=== PATIENT | female | born 1945 | race Caucasian/White ===

== ENCOUNTER 2018-09-23 21:19 | Inpatient (IN) | payer MEDICARE ==
[2018-09-23] MEDS ORDERED: NITROGLYCERIN OINT 1 INCH/GM PACKET TOPICAL STA (21:37)
[2018-09-23] MEDS ORDERED: FUROSEMIDE 10 MG/ML 2 ML VIAL IV STA (21:38)
[2018-09-23] MEDS ORDERED: MORPHINE SULFATE 4 MG/ML SYRINGE IV STA (21:38)
--- NOTE | 2018-09-23 22:05 | ED ---
General Adult HPI - General Chief complaint: Shortness of Breath Stated complaint: Anemia Time Seen by Provider: 09/23/18 21:26 Source: patient Mode of arrival: EMS - History of Present Illness Initial comments: This patient is a 73-year-old woman who is transferred here from [facility] to have further evaluation and treatment. The patient recent history includes having had right hip fracture, reportedly having myocardial infarction, and also having DKA versus hyperosmolar syndrome, for which she was admitted to come in the hospital. The patient had been treated there and then discharged to the [facility] for further rehabilitation. It was reported that the patient was found to have anemia with a hemoglobin below 6 and she was transferred to [facility]. When the patient was seen there her hemoglobin was found to be 5.9 and she received transfusion of 2 units of red cells. The patient was then transferred here for further evaluation of her anemia. When I interview the patient, she is not complaining of feeling extremely hot and short of breath. She denies chest pain. No abdominal pain. No vomiting or diarrhea. She denies passing bloody or dark tarry stools. Additional history reveals that the patient has moved to the [facility] approximately 4-5 weeks ago. She previously was living in [facility] receiving primary care from a . -: unknown Improves with: none Worsens with: none Associated Symptoms: diaphoresis, shortness of breath Treatments Prior to Arrival: other (Blood transfusion, Lasix, albuterol) - Related Data Home Medications Medication Instructions Recorded Confirmed ALPRAZolam [Xanax] 2 mg PO HS 09/23/18 09/23/18 Albuterol Nebulized [Ventolin 2.5 mg INHALATION RT-Q4H 09/23/18 09/23/18 Nebulized] Aspirin [[place] Aspirin EC] 81 mg PO DAILY 09/23/18 09/23/18 Bisacodyl 10 mg RECTAL DAILY PRN 09/23/18 09/23/18 Clopidogrel Bisulfate [Plavix] 75 mg PO DAILY 09/23/18 09/23/18 Ferrous Sulfate [Iron (65 MG 325 mg PO DAILY 09/23/18 09/23/18 Elemental)] Furosemide [Lasix] 40 mg PO BID 09/23/18 09/23/18 HYDROcodone/APAP 10-325MG [[place] 1 tab PO Q6H 09/23/18 09/23/18 10-325] Insulin Glargine,Hum.rec.anlog 15 unit SQ HS 09/23/18 09/23/18 [Basaglar Kwikpen U-100] Insulin Lispro [humaLOG Kwikpen] See Protocol SQ AC-TID 09/23/18 09/23/18 Isosorbide Mononitrate ER [Imdur] 30 mg PO BID 09/23/18 09/23/18 Levothyroxine Sodium [Synthroid] 137 mcg PO DAILY 09/23/18 09/23/18 Lisinopril [Zestril] 10 mg PO DAILY 09/23/18 09/23/18 Lovastatin [Mevacor] 40 mg PO DAILY 09/23/18 09/23/18 Magnesium Hydroxide [Milk of 7,200 mg PO DAILY PRN 09/23/18 09/23/18 Magnesia Concentrate] Metoprolol Succinate [Toprol XL] 37.5 mg PO DAILY 09/23/18 09/23/18 Omeprazole [PriLOSEC] 20 mg PO BID 09/23/18 09/23/18 Phenytoin Sodium Extended 300 mg PO BID 09/23/18 09/23/18 [Dilantin] Ramipril [Altace] 5 mg PO DAILY 09/23/18 09/23/18 Sertraline [Zoloft] 150 mg PO DAILY 09/23/18 09/23/18 levETIRAcetam [Keppra] 1,000 mg PO BID 09/23/18 09/23/18 Allergies Allergy/AdvReac Type Severity Reaction Status Date / Time Penicillins Allergy Unknown Verified 09/23/18 21:41 pregabalin [From Lyrica] Allergy Unknown Verified 09/23/18 22:45 Review of Systems ROS Statement: Those systems with pertinent positive or pertinent negative responses have been documented in the HPI. ROS Other: All systems not noted in ROS Statement are negative. Constitutional: Denies: fever, chills Respiratory: Reports: dyspnea. Denies: cough, hemoptysis Cardiovascular: Reports: dyspnea on exertion, orthopnea, edema. Denies: chest pain, palpitations, syncope Gastrointestinal: Denies: abdominal pain, vomiting, diarrhea, melena, hematochezia Genitourinary: Denies: dysuria, hematuria Musculoskeletal: Denies: back pain Skin: Denies: rash Neurological: Denies: headache, weakness, numbness, paresthesias Past Medical History History of Any Multi-Drug Resistant Organisms: None Reported Past Psychological History: No Psychological Hx Reported Smoking Status: Former smoker Past Alcohol Use History: None Reported Past Drug Use History: None Reported - Past Family History Sister(s) Family Medical History: Diabetes Mellitus General Exam General appearance: alert, in distress Head exam: Present: atraumatic, normocephalic Eye exam: Present: normal appearance. Absent: scleral icterus, conjunctival injection ENT exam: Present: mucous membranes dry Neck exam: Present: normal inspection, full ROM Respiratory exam: Present: respiratory distress, rales, accessory muscle use. Absent: wheezes, rhonchi, stridor, decreased breath sounds, prolonged expiratory Cardiovascular Exam: Present: normal rhythm, tachycardia, normal heart sounds. Absent: systolic murmur, diastolic murmur, rubs, gallop GI/Abdominal exam: Present: soft. Absent: distended, tenderness, guarding, rebo und, rigid, mass Rectal exam: Present: normal inspection, normal rectal tone, other (HAL Begum present). Absent: fecal impaction, hemorrhoids, mass, tenderness Extremities exam: Present: normal inspection, normal capillary refill, pedal edema (There is pitting edema to just below the knees bilaterally). Absent: calf tenderness Back exam: Present: normal inspection. Absent: CVA tenderness (R), CVA tenderness (L) Neurological exam: Present: alert Skin exam: Present: warm, intact, diaphoretic, pallor, other (Patient does have stage II sacral decubitus ulcer, approximately 2-3 cm diameter.). Absent: rash Course Vital Signs 09/23/18 09/23/18 09/23/18 21:24 22:00 23:30 Temperature 98.1 F Pulse Rate 103 H 93 Respiratory 32 H 23 Rate Blood Pressure 166/65 130/52 O2 Sat by Pulse 96 98 100 Oximetry - Reevaluation(s) Reevaluation #1: 09/23/18 22:25 Patient is 73-year-old woman received as a transfer from [facility]. On arrival she does appear to be in moderate distress due to what appears to be congestive heart failure/pulmonary edema. The patient is started on BiPAP and given additional medications. Reassessment reveals that the patient is feeling better with the BiPAP and medication. The diaphoresis has resolved. The patient is less tachypnea And the tachycardia has resolved. Case discussed with Dr. Saavedra, who is covering for the [facility] and will admit. EKG Findings - EKG Comments: EKG Findings:: Old inferior infarct. Old anterolateral infarct. - EKG Results: EKG: interpreted by ERMD, sinus rhythm, normal axis EKG shows: tachycardia (Approximate 101) - Blocks, [place], Hypertrophy, ST Abn: AV and intraventricular conduction: right bundle branch block (fixed/intermittent, complete/incomplete) Medical Decision Making - Lab Data Result diagrams: 09/25/18 06:28 09/25/18 06:28 Lab Results 09/23/18 09/23/18 09/23/18 Range/Units 21:46 21:46 21:46 WBC 10.0 (3.8-10.6) k/uL RBC 3.29 L (3.80-5.40) m/uL Hgb 10.1 L (11.4-16.0) gm/dL Hct 33.4 L (34.0-46.0) % MCV 101.6 H (80.0-100.0) fL MCH 30.6 (25.0-35.0) pg MCHC 30.1 L (31.0-37.0) g/dL RDW 17.9 H (11.5-15.5) % Plt Count 567 H (150-450) k/uL Neutrophils % 87 % Lymphocytes % 4 % Monocytes % 7 % Eosinophils % 0 % Basophils % 0 % Neutrophils # 8.7 H (1.3-7.7) k/uL Lymphocytes # 0.4 L (1.0-4.8) k/uL Monocytes # 0.7 (0-1.0) k/uL Eosinophils # 0.0 (0-0.7) k/uL Basophils # 0.0 (0-0.2) k/uL Hypochromasia Marked Poikilocytosis Moderate Anisocytosis Slight Macrocytosis Moderate PT 10.9 (9.0-12.0) sec INR 1.0 (<1.2) APTT 19.9 L (22.0-30.0) sec Sodium (137-145) mmol/L Potassium (3.5-5.1) mmol/L Chloride (98-107) mmol/L Carbon Dioxide (22-30) mmol/L Anion Gap mmol/L BUN (7-17) mg/dL Creatinine (0.52-1.04) mg/dL Est GFR (CKD-EPI)AfAm (>60 ml/min/1.73 sqM) Est GFR (CKD-EPI)NonAf (>60 ml/min/1.73 sqM) Glucose (74-99) mg/dL Plasma Lactic Acid Angelo 1.7 (0.7-2.0) mmol/L Calcium (8.4-10.2) mg/dL Total Bilirubin (0.2-1.3) mg/dL AST (14-36) U/L ALT (9-52) U/L Alkaline Phosphatase (38-126) U/L Troponin I (0.000-0.034) ng/mL Total Protein (6.3-8.2) g/dL Albumin (3.5-5.0) g/dL Blood Type Blood Type Recheck Antibody Screen Spec Expiration Date 09/23/18 09/23/18 09/23/18 Range/Units 21:46 21:46 21:50 WBC (3.8-10.6) k/uL RBC (3.80-5.40) m/uL Hgb (11.4-16.0) gm/dL Hct (34.0-46.0) % MCV (80.0-100.0) fL MCH (25.0-35.0) pg MCHC (31.0-37.0) g/dL RDW (11.5-15.5) % Plt Count (150-450) k/uL Neutrophils % % Lymphocytes % % Monocytes % % Eosinophils % % Basophils % % Neutrophils # (1.3-7.7) k/uL Lymphocytes # (1.0-4.8) k/uL Monocytes # (0-1.0) k/uL Eosinophils # (0-0.7) k/uL Basophils # (0-0.2) k/uL Hypochromasia Poikilocytosis Anisocytosis Macrocytosis PT (9.0-12.0) sec INR (<1.2) APTT (22.0-30.0) sec Sodium 136 L (137-145) mmol/L Potassium 4.4 (3.5-5.1) mmol/L Chloride 101 (98-107) mmol/L Carbon Dioxide 22 (22-30) mmol/L Anion Gap 13 mmol/L BUN 38 H (7-17) mg/dL Creatinine 0.95 (0.52-1.04) mg/dL Est GFR (CKD-EPI)AfAm 70 (>60 ml/min/1.73 sqM) Est GFR (CKD-EPI)NonAf 61 (>60 ml/min/1.73 sqM) Glucose 331 H (74-99) mg/dL Plasma Lactic Acid Angelo (0.7-2.0) mmol/L Calcium 8.9 (8.4-10.2) mg/dL Total Bilirubin 0.8 (0.2-1.3) mg/dL AST 47 H (14-36) U/L ALT 39 (9-52) U/L Alkaline Phosphatase 392 H (38-126) U/L Troponin I 0.186 H* (0.000-0.034) ng/mL Total Protein 6.1 L (6.3-8.2) g/dL Albumin 3.3 L (3.5-5.0) g/dL Blood Type AB Negative Blood Type Recheck CABO Indicated Antibody Screen NEGATIVE Spec Expiration Date 09/26/2018 - 7559 Critical Care Time Critical Care Time: Yes (35 minutes) Disposition Clinical Impression: Congestive heart failure, Anemia, Decubitus skin ulcer, Elevated troponin I level Disposition: ADMITTED IP TO THIS [facility] Condition: Poor
[2018-09-23 22:25] LABS: Albumin 3.3 g/dL (3.5-5.0); Calcium 8.9 mg/dL (8.4-10.2); Potassium 4.4 mmol/L (3.5-5.1); Total Bilirubin 0.8 mg/dL (0.2-1.3); Total Protein 6.1 g/dL (6.3-8.2)
[2018-09-23] MEDS ORDERED: ACETAMINOPHEN TAB 325 MG TAB PO PRN (22:26)
[2018-09-23] MEDS ORDERED: NALOXONE 0.4 MG/ML 1 ML VIAL IV PRN (22:26)
[2018-09-23] MEDS ORDERED: ONDANSETRON 4 MG/2 ML VIAL IVP PRN (22:26)
[2018-09-23 22:34] LABS: Prothrombin Time 10.9 sec (9.0-12.0)
[2018-09-23 22:35] LABS: Partial Thromboplastin Time 19.9 sec (22.0-30.0)
[2018-09-23 22:37] LABS: Anisocytosis Slight; Basophils % (A) 0 %; Eosinophils % (A) 0 %; HCT 33.4 % (34.0-46.0); HGB 10.1 gm/dL (11.4-16.0); Hypochromasia Marked; Lymphocytes # (A) 0.4 k/uL (1.0-4.8); Lymphocytes % (A) 4 %; MCH 30.6 pg (25.0-35.0); MCHC 30.1 g/dL (31.0-37.0); MCV 101.6 fL (80.0-100.0); Macrocytosis Moderate; Mean Platelet Volume 7.2; Monocytes # (A) 0.7 k/uL (0-1.0); Monocytes % (A) 7 %; Neutrophils # (A) 8.7 k/uL (1.3-7.7); Neutrophils % (A) 87 %; Platelet Count 567 k/uL (150-450); Poikilocytosis Moderate; RBC 3.29 m/uL (3.80-5.40); RDW 17.9 % (11.5-15.5)
[2018-09-23] MEDS ORDERED: INSULIN REGULAR 100 UNIT/ML VIAL SQ STA (23:26)
[2018-09-24 00:45] LABS: Glucose,Whole Blood 340 mg/dL (75-99)
[2018-09-24] MEDS: SODIUM CHLORIDE 0.9% 1,000 ML IV SCH ×2 (01:28→23:17)
--- NOTE | 2018-09-24 01:31 | P.HPIM ---
History of Present Illness H&P Date: 09/24/18 The patient is a 73 yo F with a PMH of CAD, systolic CHF, COPD, HTN, DM, and seizure disorder was transferred to the ED from [facility] . The patient had a L hip repair in July 2018 and was discharged to [facility] where routine blood work revealed a Hgb of 5.9 earlier today for which she was sent to [facility]. The patient received 2 units of pRBCs and was subsequently transferred to our ED for further management. Upon my interview, the patient reported that she has been experiencing gradually worsening shortness of breath over the past few weeks along with LE edema. She also noted that she had previously undergone a workup for her anemia with endoscopy and co lonoscopy, and was told that they weren't able to find a particular cause. She denied noticing bright red blood per rectum or melena. She notes compliance with her lasix and other medications. She otherwise denied chest pain, nausea, vomiting, abdominal pain, or diarrhea. Further denied headaches, visual disturbances, or LE pain. She reported that she had recently moved to the area and prior to her hip repair was living in [facility]. She underwent an extensive evaluation in the Ed w/ Troponin leve 0.186, BNP 10,200, BUN 38, Hgb 10.1, WBC 10.0, lactic acid 1.7, and FOBT positive. She was noted to be in fluid overload and was given IV lasix and admitted to the medicine service for further management. Review of Systems Pertinent positives and negatives as discussed in HPI, a complete review of systems was performed and all other systems are negative. Past Medical History History of Any Multi-Drug Resistant Organisms: None Reported Past Psychological History: No Psychological Hx Reported Smoking Status: Former smoker Past Alcohol Use History: None Reported Past Drug Use History: None Reported - Past Family History Sister(s) Family Medical History: Diabetes Mellitus Medications and Allergies Home Medications Medication Instructions Recorded Confirmed Type ALPRAZolam [Xanax] 2 mg PO HS 09/23/18 09/23/18 History Albuterol Nebulized [Ventolin 2.5 mg INHALATION RT-Q4H 09/23/18 09/23/18 History Nebulized] Aspirin [[place] Aspirin EC] 81 mg PO DAILY 09/23/18 09/23/18 History Bisacodyl 10 mg RECTAL DAILY PRN 09/23/18 09/23/18 History Clopidogrel Bisulfate [Plavix] 75 mg PO DAILY 09/23/18 09/23/18 History Ferrous Sulfate [Iron (65 MG 325 mg PO DAILY 09/23/18 09/23/18 History Elemental)] Furosemide [Lasix] 40 mg PO BID 09/23/18 09/23/18 History HYDROcodone/APAP 10-325MG [[place] 1 tab PO Q6H 09/23/18 09/23/18 History 10-325] Insulin Glargine,Hum.rec.anlog 15 unit SQ HS 09/23/18 09/23/18 History [Basaglar Kwikpen U-100] Insulin Lispro [humaLOG Kwikpen] See Protocol SQ AC-TID 09/23/18 09/23/18 History Isosorbide Mononitrate ER [Imdur] 30 mg PO BID 09/23/18 09/23/18 History Levothyroxine Sodium [Synthroid] 137 mcg PO DAILY 09/23/18 09/23/18 History Lisinopril [Zestril] 10 mg PO DAILY 09/23/18 09/23/18 History Lovastatin [Mevacor] 40 mg PO DAILY 09/23/18 09/23/18 History Magnesium Hydroxide [Milk of 7,200 mg PO DAILY PRN 09/23/18 09/23/18 History Magnesia Concentrate] Metoprolol Succinate [Toprol XL] 37.5 mg PO DAILY 09/23/18 09/23/18 History Omeprazole [PriLOSEC] 20 mg PO BID 09/23/18 09/23/18 History Phenytoin Sodium Extended 300 mg PO BID 09/23/18 09/23/18 History [Dilantin] Ramipril [Altace] 5 mg PO DAILY 09/23/18 09/23/18 History Sertraline [Zoloft] 150 mg PO DAILY 09/23/18 09/23/18 History levETIRAcetam [Keppra] 1,000 mg PO BID 09/23/18 09/23/18 History Allergies Allergy/AdvReac Type Severity Reaction Status Date / Time Penicillins Allergy Unknown Verified 09/23/18 21:41 pregabalin [From Lyrica] Allergy Unknown Verified 09/23/18 22:45 Physical Exam Vitals: Vital Signs Temp Pulse Resp BP Pulse Ox 09/23/18 23:30 93 23 130/52 100 09/23/18 22:00 98 09/23/18 21:24 98.1 F 103 H 32 H 166/65 96 Intake and Output 09/23/18 09/23/18 09/24/18 14:59 22:59 06:59 Output Total 500 Balance -500 Output: Urine 500 Other: Weight 58.06 kg Results CBC & Chem 7: 09/23/18 21:46 09/23/18 21:50 Labs: Abnormal Lab Results - Last 24 Hours (Table) 09/23/18 09/23/18 09/23/18 Range/Units 21:46 21:46 21:46 RBC 3.29 L (3.80-5.40) m/uL Hgb 10.1 L (11.4-16.0) gm/dL Hct 33.4 L (34.0-46.0) % MCV 101.6 H (80.0-100.0) fL MCHC 30.1 L (31.0-37.0) g/dL RDW 17.9 H (11.5-15.5) % Plt Count 567 H (150-450) k/uL Neutrophils # 8.7 H (1.3-7.7) k/uL Lymphocytes # 0.4 L (1.0-4.8) k/uL APTT 19.9 L (22.0-30.0) sec Sodium (137-145) mmol/L BUN (7-17) mg/dL Glucose (74-99) mg/dL POC Glucose (mg/dL) (75-99) mg/dL AST (14-36) U/L Alkaline Phosphatase (38-126) U/L Troponin I 0.186 H* (0.000-0.034) ng/mL Total Protein (6.3-8.2) g/dL Albumin (3.5-5.0) g/dL Stool Occult Blood (Negative) 09/23/18 09/23/18 09/24/18 Range/Units 21:50 22:58 00:43 RBC (3.80-5.40) m/uL Hgb (11.4-16.0) gm/dL Hct (34.0-46.0) % MCV (80.0-100.0) fL MCHC (31.0-37.0) g/dL RDW (11.5-15.5) % Plt Count (150-450) k/uL Neutrophils # (1.3-7.7) k/uL Lymphocytes # (1.0-4.8) k/uL APTT (22.0-30.0) sec Sodium 136 L (137-145) mmol/L BUN 38 H (7-17) mg/dL Glucose 331 H (74-99) mg/dL POC Glucose (mg/dL) 340 H (75-99) mg/dL AST 47 H (14-36) U/L Alkaline Phosphatase 392 H (38-126) U/L Troponin I (0.000-0.034) ng/mL Total Protein 6.1 L (6.3-8.2) g/dL Albumin 3.3 L (3.5-5.0) g/dL Stool Occult Blood Positive H (Negative) Assessment and Plan Plan: Acute CHF exacerbation -C/w lasix 40 mg q8h -Echocardiogram -Cardiac monitoring -Cardiology consult -Monitor BMP with electrolytes and replace as needed -Bipap prn Elevated troponin, likely in setting of CHF exacerbation -Trend troponin -Cardiac monitoring Macrocytic anemia, s/p 2 U pRBCs -Monitor CBC -FOBT positive -Obtain records from PMD: Dr Ramiro Ruvalcaba for prior workup in am -Liquid diet Diabetes mellitus w/ hyperglycemia -CARLOS with FS -Levemir 10 U qhs (takes Lantus 15 U qhs at home) Chronic conditions: COPD, Seizure disorder, HTN, Hypothyroidism -Resume home meds DVT prophylaxis -IPCDs The patient is admitted with an anticipated greater than 2 midnight stay for evaluation of Acute CHF exacerbation. CODE STATUS:Full Code Discussed with: Patient Anticipated discharge date: 09/27/[address]: Home A total of 45 minutes was spent on the care of this complex patient more than 50% of the time was spent in counseling and care coordination.
[2018-09-24] MEDS: ALBUTEROL NEBULIZED 2.5 MG/3 ML INHALATION SCH ×5 (03:01→21:22)
[2018-09-24 04:00] LABS: Anisocytosis Slight; HCT 28.5 % (34.0-46.0); Hypochromasia Marked; MCH 29.8 pg (25.0-35.0); MCHC 29.8 g/dL (31.0-37.0); Macrocytosis Moderate; Mean Platelet Volume 8.9; Platelet Count 398 k/uL (150-450); Poikilocytosis Marked; RBC 2.85 m/uL (3.80-5.40); RDW 17.8 % (11.5-15.5)
[2018-09-24 04:05] LABS: HGB 8.5 gm/dL (11.4-16.0)
[2018-09-24] MEDS ORDERED: FUROSEMIDE 10 MG/ML 4 ML VIAL IV STA (04:10)
[2018-09-24 04:14] LABS: Calcium 8.3 mg/dL (8.4-10.2); Potassium 4.1 mmol/L (3.5-5.1)
[2018-09-24 06:09] LABS: Glucose,Whole Blood 274 mg/dL (75-99)
[2018-09-24] MEDS: LEVOTHYROXINE 137 MCG TAB PO SCH (06:23)
[2018-09-24] MEDS: INSULIN ASPART (NovoLOG) 100 UNIT/ML VIAL SQ SCH ×4 (06:23→22:16)
[2018-09-24] MEDS ORDERED: ATORVASTATIN 10 MG TAB PO SCH (09:00)
[2018-09-24] MEDS: FUROSEMIDE 10 MG/ML 4 ML VIAL IV SCH ×3 (09:11→23:14)
[2018-09-24] MEDS: hydrALAZINE HCL 25 MG TAB PO SCH ×2 (09:12→19:56)
[2018-09-24] MEDS: ISOSORBIDE MONONITRATE ER 30 MG TAB.ER.24H PO SCH ×2 (09:12→19:56)
[2018-09-24] MEDS: ATORVASTATIN 40 MG TAB PO SCH (09:12)
[2018-09-24] MEDS: FAMOTIDINE 20 MG TAB PO SCH ×2 (09:12→19:56)
[2018-09-24] MEDS: SERTRALINE 100 MG TAB PO SCH (09:12)
[2018-09-24] MEDS: levETIRAcetam 500 MG TAB PO SCH ×2 (09:12→19:57)
[2018-09-24] MEDS: PHENYTOIN SODIUM EXTENDED 100 MG CAP PO SCH ×2 (09:13→19:56)
[2018-09-24] MEDS: METOPROLOL SUCCINATE (ER) 25 MG TAB.ER.24H PO SCH (09:13)
[2018-09-24] MEDS: LISINOPRIL 10 MG TAB PO SCH (09:14)
--- NOTE | 2018-09-24 09:43 | CONS ---
CONSULTATION Mrs. Cruz is a 73-year-old female who was transferred to [facility] from [facility] with symptoms of progressive dyspnea, anemia, and mild elevation of the troponin. The patient recently underwent left hip surgery after fracture. She was in [facility] when she was noted to have severe anemia and was transferred to [facility], received blood and subsequently transferred to [facility]. The patient says that she had a myocardial infarction at the time of her hip fracture, although details of that are not available to me. She claims that she had 3 prior myocardial infarctions. 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 She never had an angioplasty or stenting. She has chronic dyspnea on exertion but no chest pain. She has peripheral edema worse now. No PND. She has orthopnea. She has had anemia before and underwent workup but the details of that are not available. She denies any gross bleeding or change in the color of the stool yet she is heme positive. Her coronary risk factors are positive for prior history of smoking which she stopped recently. She has hypertension, hyperlipidemia. She is nondiabetic. MEDICATIONS: Include Keppra, Zoloft, Altace 5 mg daily, omeprazole 20 mg twice a day, metoprolol succinate 37.5 mg daily, lovastatin 40 mg daily, Zestril 10 mg daily, isosorbide mononitrate 30 mg twice a day, insulin, Lasix 40 mg twice a day, iron, Plavix 75 mg daily, aspirin 81 mg daily, albuterol. REVIEW OF SYSTEMS: RESPIRATORY system: She has history of chronic obstructive lung disease with dyspnea on exertion, occasional cough. GI system: She is not aware of active GI bleeding, but she has underwent endoscopy and was told that she has a small ulceration. system: No dysuria or hematuria. Nervous system: She has a history of seizure in the past. PHYSICAL EXAMINATION: 73-year-old female, appears older than stated age, small body habitus. Blood pressure running in the 160s and 170s with a heart rate in the 60s. HEAD: Normocephalic. EYES: Sclerae anicteric. NECK: No bruit. LUNGS with decreased air exchange bilaterally. No wheezes. HEART: Regular rate and rhythm S1, S2. No S3 with systolic murmur. No diastolic murmur. No rub. ABDOMEN: Soft, nontender. Positive bowel sounds. No megaly. EXTREMITIES: +1 to 2 edema bilaterally. LAB DATA: Lab data revealed a hemoglobin of 8.5. Yesterday it was 10.1, white blood cell of 11. BUN and creatinine 41 and 0.95. Potassium 4.1. Troponin of 0.186 and 0.211. NT proBNP of 10,200. She is heme positive. EKG revealed a sinus mechanism, rate of 101 with right bundle branch block, left axis deviation, cannot exclude an inferolateral myocardial infarction. IMPRESSION: 1. Anemia, severe. The patient's hemoglobin was down to 5.9, received 2 units of blood. 2. Mild elevation of troponin, most likely a type 2 event. I do not believe that we are dealing with a primary ischemic event. 3. Peripheral edema with finding of congestive heart failure, the left ventricular systolic function evaluation is unclear. 4. Prior history of coronary artery disease. 5. History of diabetes. 6. History of chronic obstructive lung disease. 7. History of hypertension. 8. Hyperlipidemia. RECOMMENDATION: From the cardiac standpoint, I will continue on the IV diuretics. Her antiplatelets have been on hold. I will add to her regimen hydralazine to optimize her blood pressure control. We will follow her renal function. Review the results for the echo. We will try to obtain the prior workup that was done in [place] regarding her cardiac status. Depending on her progress, further recommendations will be made. Thank you for this consult. We will follow with you. MMODL / IJN: [id number] /
--- NOTE | 2018-09-24 10:09 | XR ---
EXAMINATION TYPE: XR chest 1V portable DATE OF EXAM: 09/24/2018 COMPARISON: 09/23/2018 HISTORY: Shortness of breath TECHNIQUE: Single frontal view of the chest is obtained. FINDINGS: Bilateral consolidation, pleural effusion diffuse interstitial pattern. Heart size promine nt. No pneumothorax. Suspect underlying COPD. Diffuse osteopenia. IMPRESSION: Pattern favors CHF stable in appearance. Underlying pneumonia not excluded.
[2018-09-24 10:37] LABS: Anisocytosis Slight; Basophils % (A) 0 %; Eosinophils % (A) 0 %; HCT 29.1 % (34.0-46.0); HGB 8.8 gm/dL (11.4-16.0); Hypochromasia Marked; Lymphocytes # (A) 0.3 k/uL (1.0-4.8); Lymphocytes % (A) 3 %; MCHC 30.2 g/dL (31.0-37.0); MCV 99.4 fL (80.0-100.0); Macrocytosis Moderate; Mean Platelet Volume 8.2; Monocytes % (A) 9 %; Neutrophils # (A) 9.2 k/uL (1.3-7.7); Neutrophils % (A) 86 %; Platelet Count 429 k/uL (150-450); Poikilocytosis Marked; RBC 2.93 m/uL (3.80-5.40); RDW 17.9 % (11.5-15.5); WBC 10.7 k/uL (3.8-10.6)
[2018-09-24] MEDS: HYDROcodone/APAP 10-325MG 1 EACH TAB PO SCH ×3 (11:07→23:14)
--- NOTE | 2018-09-24 11:14 | P.PN ---
Progress Note - Text Progress Note Date: 09/24/18 S:- Pt. 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 Pt. reports that her breathing is slightly better and nurse reported that she is no longer requiring BiPAP for her breathing. Pt. reports right hip pain from her recent fracture and repair, she stated that she was on [place] but it wasn't resumed here (most likely due to her respiratory status requiring BiPAP for stability). When asked her about GI bleeding, she reported that she was worked up in the past and was told that her small intestine has AV- dilation that may bleed but no treatment was done. Pt. denied bright red blood per rectum or tarry black stools. She was taken to other acility with Hb-5.9 and received 2 units PRBC with her Hb at admission to this facility 10.1 and this morning 8.5. Pt. denied CP, Palpitations, Diaphoresis, Dizziness, N/V, F/C and denies rest of the ROS. She reports improvement in her breathing status. O:- Vitals - 151/65, 74, 18, Afebrile, 100% on RA. Gen - A, O X 3, NAD. Resp - Bibasal crackles, with luis ecentral coarse crackles, no wheezes heard. Heart - RRR, S1S2+. Abd - Soft, BS +, non-tender abdomen. Ext - PP+, 2+ bilateral lower extremity pitting edema. A/P:- 1- Acute Exacerbation of CHF - Cardiology on case, will continue current management, strict Is and Os and daily weights, CXR portable to assess improvement in pulmonary edema. 2- NSTEMI type-II - Cardio on case, will await their recs. 3- GI bleed with anemia - Hb at admission of 10.1 may be falsely elevated as she had Hb-5.9 and received 2 untis PRBC and today Hb 8.5 is appropriate rise, will check CBC in am again. 4- Chronic medical conditions - Continue home medications, will resume painmedications too as pt. is improving respiratory ramos and is 100% on RA.
[2018-09-24 12:05] LABS: Glucose,Whole Blood 327 mg/dL (75-99)
[2018-09-24 16:49] LABS: Glucose,Whole Blood 291 mg/dL (75-99)
[2018-09-24 17:44] LABS: Anisocytosis Slight; HCT 26.7 % (34.0-46.0); Hypochromasia Marked; MCH 30.1 pg (25.0-35.0); MCV 100.5 fL (80.0-100.0); Macrocytosis Moderate; Mean Platelet Volume 8.6; Poikilocytosis Moderate; RBC 2.65 m/uL (3.80-5.40); RDW 17.8 % (11.5-15.5); WBC 11.8 k/uL (3.8-10.6)
[2018-09-24 18:03] LABS: Platelet Count 410 k/uL (150-450)
[2018-09-24] MEDS: ALPRAZolam 1 MG TAB PO SCH (19:57)
[2018-09-24 21:10] LABS: Glucose,Whole Blood 352 mg/dL (75-99)
[2018-09-24] MEDS: INSULIN DETEMIR (LEVEMIR) 100 UNIT/ML SYR SQ SCH (22:16)
--- NOTE | 2018-09-24 22:18 | P.CONS ---
History of Present Illness - Reason for Consult Consult date: 09/24/18 Anemia Requesting physician: Jaylin Saavedra - Chief Complaint Shortness of breath, anemia - History of Present Illness 73-year-old female with a past medical history significant for coronary artery disease, systolic congestive heart failure, COPD, diabetes mellitus, hypertens ion, anemia and seizure disorder who was transferred from [facility] where she was initially evaluated for complaints of shortness of breath. The patient had been having worsening shortness of breath and lower extremity swelling for a few weeks prior to presentation to the emergency department. The patient was also found to be anemic with a hemoglobin of 5.9 and is status post 2 units of packed red blood cells. On questioning the patient reports known history of anemia which she has been evaluated for by hematology and gastroenterology in the past. She reports endoscopic evaluation with EGD and colonoscopy in February or March which she states were significant for bleeding vessels. She denies any intervention at the time of endoscopy. Currently she is also denying any signs or symptoms of GI bleeding, with no coffee-ground emesis, hematemesis, hematochezia or melena. She denies any abdominal pain or change in bowel habits. No NSAID use reported. Review of Systems REVIEW OF SYSTEMS: CONSTITUTIONAL: Denies any fevers, chills, but does report fatigue. CARDIOVASCULAR: Denies any chest pain, palpitations high or low blood pressures RESPIRATORY: Shortness of breath, denies hemoptysis. GENITOURINARY: No dysuria or hematuria. MUSCULOSKELETAL: No weakness reported. SKIN: Denies any new rashes or lesions, jaundice or pallor. PSYCHIATRIC: Denies any depression or anxiety. NEUROLOGY: Denies headache, denies any new focal deficits. EARS/NOSE/THROAT: No recent hearing change, congestion, nasal discharge or sore throat. EYES: No pain in eyes, discharge or change in vision. GASTROINTESTINAL: As per HPI. Past Medical History Past Medical History: Diabetes Mellitus, Hypertension, Myocardial Infarction (MA), Seizure Disorder, Thyroid Disorder Additional Past Medical History / Comment(s): anemia,anxiety,depression Last Myocardial Infarction Date:: 07/2018 History of Any Multi-Drug Resistant Organisms: None Reported Additional Past Surgical History / Comment(s): right hip fx (08-09) Past Anesthesia/Blood Transfusion Reactions: No Reported Reaction Past Psychological History: No Psychological Hx Reported Smoking Status: Former smoker Past Alcohol Use History: None Reported Past Drug Use History: None Reported - Past Family History Sister(s) Family Medical History: Diabetes Mellitus Medications and Allergies Home Medications Medication Instructions Recorded Confirmed Type ALPRAZolam [Xanax] 2 mg PO HS 09/23/18 09/23/18 History Albuterol Nebulized [Ventolin 2.5 mg INHALATION RT-Q4H 09/23/18 09/23/18 History Nebulized] Aspirin [[place] Aspirin EC] 81 mg PO DAILY 09/23/18 09/23/18 History Bisacodyl 10 mg RECTAL DAILY PRN 09/23/18 09/23/18 History Clopidogrel Bisulfate [Plavix] 75 mg PO DAILY 09/23/18 09/23/18 History Ferrous Sulfate [Iron (65 MG 325 mg PO DAILY 09/23/18 09/23/18 History Elemental)] Furosemide [Lasix] 40 mg PO BID 09/23/18 09/23/18 History HYDROcodone/APAP 10-325MG [[place] 1 tab PO Q6H 09/23/18 09/23/18 History 10-325] Insulin Glargine,Hum.rec.anlog 15 unit SQ HS 09/23/18 09/23/18 History [Basaglar Kwikpen U-100] Insulin Lispro [humaLOG Kwikpen] See Protocol SQ AC-TID 09/23/18 09/23/18 History Isosorbide Mononitrate ER [Imdur] 30 mg PO BID 09/23/18 09/23/18 History Levothyroxine Sodium [Synthroid] 137 mcg PO DAILY 09/23/18 09/23/18 History Lisinopril [Zestril] 10 mg PO DAILY 09/23/18 09/23/18 History Lovastatin [Mevacor] 40 mg PO DAILY 09/23/18 09/23/18 History Magnesium Hydroxide [Milk of 7,200 mg PO DAILY PRN 09/23/18 09/23/18 History Magnesia Concentrate] Metoprolol Succinate [Toprol XL] 37.5 mg PO DAILY 09/23/18 09/23/18 History Omeprazole [PriLOSEC] 20 mg PO BID 09/23/18 09/23/18 History Phenytoin Sodium Extended 300 mg PO BID 09/23/18 09/23/18 History [Dilantin] Ramipril [Altace] 5 mg PO DAILY 09/23/18 09/23/18 History Sertraline [Zoloft] 150 mg PO DAILY 09/23/18 09/23/18 History levETIRAcetam [Keppra] 1,000 mg PO BID 09/23/18 09/23/18 History Allergies Allergy/AdvReac Type Severity Reaction Status Date / Time Penicillins Allergy Unknown Verified 09/23/18 21:41 pregabalin [From Lyrica] Allergy Unknown Verified 09/23/18 22:45 Physical Exam Vitals: Vital Signs Temp Pulse Pulse Resp BP BP Pulse Ox 09/24/18 21:20 68 09/24/18 20:00 98.1 F 88 24 131/58 95 09/24/18 16:37 67 09/24/18 16:30 100 09/24/18 16:27 68 09/24/18 15:23 98.6 F 74 20 115/53 96 09/24/18 11:24 69 09/24/18 11:14 68 09/24/18 11:08 98.1 F 89 18 117/57 98 09/24/18 08:22 71 09/24/18 08:09 67 100 09/24/18 08:00 98.1 F 74 18 151/65 100 09/24/18 04:00 98.2 F 96 28 H 170/80 98 09/24/18 01:17 95 26 H 09/24/18 01:11 97.4 F L 95 26 H 160/100 98 09/23/18 23:30 93 23 130/52 100 09/23/18 22:00 98 09/23/18 21:24 98.1 F 103 H 32 H 166/65 96 Intake and Output 09/24/18 09/24/18 09/24/18 06:59 14:59 22:59 Intake Total 200 90 20 Output Total 1300 350 Balance -1100 -260 20 Intake: IV 20 Invasive Line 1 10 Invasive Line 2 10 Oral 200 90 Output: Urine 1300 350 Other: Voiding Method Indwelling Catheter Indwelling Catheter Indwelling Catheter # Voids 0 Weight 65.5 kg 65.5 kg On physical examination, patient appears comfortable in no apparent distress. HEAD: Normocephalic, atraumatic. EYES: No scleral icterus. No conjunctival injection. MOUTH: No lesions, tongue midline. NECK: Trachea midline, no gross abnormalities. CHEST: Decreased air entry in all lung scanlon. HEART: Regular rate and rhythm. ABDOMEN: Soft, nontender. Bowel sounds are positive. No organomegaly. No guarding or rigidity. EXTREMITIES: Bilateral pedal edema. SKIN: No rashes, no jaundice. NEUROLOGIC: Alert and oriented x3. No focal deficits. Results CBC & Chem 7: 09/24/18 17:33 09/24/18 03:45 Labs: Abnormal Lab Results - Last 24 Hours (Table) 09/23/18 09/23/18 09/23/18 Range/Units 21:46 21:46 21:46 WBC (3.8-10.6) k/uL RBC 3.29 L (3.80-5.40) m/uL Hgb 10.1 L (11.4-16.0) gm/dL Hct 33.4 L (34.0-46.0) % MCV 101.6 H (80.0-100.0) fL MCHC 30.1 L (31.0-37.0) g/dL RDW 17.9 H (11.5-15.5) % Plt Count 567 H (150-450) k/uL Neutrophils # 8.7 H (1.3-7.7) k/uL Lymphocytes # 0.4 L (1.0-4.8) k/uL APTT 19.9 L (22.0-30.0) sec Sodium (137-145) mmol/L BUN (7-17) mg/dL Glucose (74-99) mg/dL POC Glucose (mg/dL) (75-99) mg/dL Calcium (8.4-10.2) mg/dL AST (14-36) U/L Alkaline Phosphatase (38-126) U/L Troponin I 0.186 H* (0.000-0.034) ng/mL Total Protein (6.3-8.2) g/dL Albumin (3.5-5.0) g/dL Stool Occult Blood (Negative) 09/23/18 09/23/18 09/24/18 Range/Units 21:50 22:58 00:43 WBC (3.8-10.6) k/uL RBC (3.80-5.40) m/uL Hgb (11.4-16.0) gm/dL Hct (34.0-46.0) % MCV (80.0-100.0) fL MCHC (31.0-37.0) g/dL RDW (11.5-15.5) % Plt Count (150-450) k/uL Neutrophils # (1.3-7.7) k/uL Lymphocytes # (1.0-4.8) k/uL APTT (22.0-30.0) sec Sodium 136 L (137-145) mmol/L BUN 38 H (7-17) mg/dL Glucose 331 H (74-99) mg/dL POC Glucose (mg/dL) 340 H (75-99) mg/dL Calcium (8.4-10.2) mg/dL AST 47 H (14-36) U/L Alkaline Phosphatase 392 H (38-126) U/L Troponin I (0.000-0.034) ng/mL Total Protein 6.1 L (6.3-8.2) g/dL Albumin 3.3 L (3.5-5.0) g/dL Stool Occult Blood Positive H (Negative) 09/24/18 09/24/18 09/24/18 Range/Units 03:45 03:45 03:45 WBC 11.0 H (3.8-10.6) k/uL RBC 2.85 L (3.80-5.40) m/uL Hgb 8.5 L D (11.4-16.0) gm/dL Hct 28.5 L (34.0-46.0) % MCV (80.0-100.0) fL MCHC 29.8 L (31.0-37.0) g/dL RDW 17.8 H (11.5-15.5) % Plt Count (150-450) k/uL Neutrophils # (1.3-7.7) k/uL Lymphocytes # (1.0-4.8) k/uL APTT (22.0-30.0) sec Sodium (137-145) mmol/L BUN 41 H (7-17) mg/dL Glucose 233 H (74-99) mg/dL POC Glucose (mg/dL) (75-99) mg/dL Calcium 8.3 L (8.4-10.2) mg/dL AST (14-36) U/L Alkaline Phosphatase (38-126) U/L Troponin I 0.211 H* (0.000-0.034) ng/mL Total Protein (6.3-8.2) g/dL Albumin (3.5-5.0) g/dL Stool Occult Blood (Negative) 09/24/18 09/24/18 09/24/18 Range/Units 06:07 09:58 09:58 WBC 10.7 H (3.8-10.6) k/uL RBC 2.93 L (3.80-5.40) m/uL Hgb 8.8 L (11.4-16.0) gm/dL Hct 29.1 L (34.0-46.0) % MCV (80.0-100.0) fL MCHC 30.2 L (31.0-37.0) g/dL RDW 17.9 H (11.5-15.5) % Plt Count (150-450) k/uL Neutrophils # 9.2 H (1.3-7.7) k/uL Lymphocytes # 0.3 L (1.0-4.8) k/uL APTT (22.0-30.0) sec Sodium (137-145) mmol/L BUN (7-17) mg/dL Glucose (74-99) mg/dL POC Glucose (mg/dL) 274 H (75-99) mg/dL Calcium (8.4-10.2) mg/dL AST (14-36) U/L Alkaline Phosphatase (38-126) U/L Troponin I 0.213 H* (0.000-0.034) ng/mL Total Protein (6.3-8.2) g/dL Albumin (3.5-5.0) g/dL Stool Occult Blood (Negative) 09/24/18 09/24/18 09/24/18 Range/Units 11:45 16:39 17:33 WBC 11.8 H (3.8-10.6) k/uL RBC 2.65 L (3.80-5.40) m/uL Hgb 8.0 L (11.4-16.0) gm/dL Hct 26.7 L (34.0-46.0) % MCV 100.5 H (80.0-100.0) fL MCHC 30.0 L (31.0-37.0) g/dL RDW 17.8 H (11.5-15.5) % Plt Count (150-450) k/uL Neutrophils # (1.3-7.7) k/uL Lymphocytes # (1.0-4.8) k/uL APTT (22.0-30.0) sec Sodium (137-145) mmol/L BUN (7-17) mg/dL Glucose (74-99) mg/dL POC Glucose (mg/dL) 327 H 291 H (75-99) mg/dL Calcium (8.4-10.2) mg/dL AST (14-36) U/L Alkaline Phosphatase (38-126) U/L Troponin I (0.000-0.034) ng/mL Total Protein (6.3-8.2) g/dL Albumin (3.5-5.0) g/dL Stool Occult Blood (Negative) 09/24/18 Range/Units 21:02 WBC (3.8-10.6) k/uL RBC (3.80-5.40) m/uL Hgb (11.4-16.0) gm/dL Hct (34.0-46.0) % MCV (80.0-100.0) fL MCHC (31.0-37.0) g/dL RDW (11.5-15.5) % Plt Count (150-450) k/uL Neutrophils # (1.3-7.7) k/uL Lymphocytes # (1.0-4.8) k/uL APTT (22.0-30.0) sec Sodium (137-145) mmol/L BUN (7-17) mg/dL Glucose (74-99) mg/dL POC Glucose (mg/dL) 352 H (75-99) mg/dL Calcium (8.4-10.2) mg/dL AST (14-36) U/L Alkaline Phosphatase (38-126) U/L Troponin I (0.000-0.034) ng/mL Total Protein (6.3-8.2) g/dL Albumin (3.5-5.0) g/dL Stool Occult Blood (Negative) Chest x-ray: report reviewed (X-ray chest with bilateral consolidation suspicious for exacerbation of CHF) Assessment and Plan (1) Normocytic anemia Narrative/Plan: 73-year-old female with multiple medical comorbidities including COPD and systolic CHF who initially presented with shortness of breath and increased lower extremity swelling and was subsequently transferred from [facility] due to low hemoglobin. On questioning the patient has a known history of anemia which has been evaluated in the past 6 months per her history with endoscopic evaluation with findings of what she describes as bleeding vessels which were not intervened upon. On review of patient's medication she is on home iron therapy. It is likely that her anemia is multifactorial likely with a component of GI bleeding from what are likely AVMs by her description as well as anemia of chronic disease. Current Visit: Yes Status: Acute Code(s): D64.9 - ANEMIA, UNSPECIFIED SNOMED Code(s): 497277869 Plan: Supportive care Okay for diet Continue to monitor hemoglobin and hematocrit and transfuse as needed Await records from prior endoscopic evaluation Continue famotidine No plans for endoscopic evaluation at this time, and given the patient's respiratory status she would be high risk for any endoscopic procedure, however if the patient's has overt signs of bleeding or precipitous fall in hemoglobin will discuss further evaluation at that time Thank you for allowing us to participate in the care of the patient we will continue to follow
[2018-09-25] MEDS: ALBUTEROL NEBULIZED 2.5 MG/3 ML INHALATION SCH ×6 (00:03→20:18)
[2018-09-25] MEDS: HYDROcodone/APAP 10-325MG 1 EACH TAB PO SCH ×4 (02:59→20:41)
[2018-09-25 06:39] LABS: Glucose,Whole Blood 104 mg/dL (75-99)
[2018-09-25] MEDS: INSULIN ASPART (NovoLOG) 100 UNIT/ML VIAL SQ SCH ×4 (06:43→20:50)
[2018-09-25] MEDS: LEVOTHYROXINE 137 MCG TAB PO SCH (06:44)
[2018-09-25 07:00] LABS: Anisocytosis Slight; HCT 26.6 % (34.0-46.0); HGB 8.1 gm/dL (11.4-16.0); Hypochromasia Marked; MCH 30.2 pg (25.0-35.0); MCHC 30.3 g/dL (31.0-37.0); MCV 99.6 fL (80.0-100.0); Macrocytosis Slight; Mean Platelet Volume 8.2; Platelet Count 439 k/uL (150-450); Poikilocytosis Moderate; RBC 2.67 m/uL (3.80-5.40); RDW 17.6 % (11.5-15.5)
[2018-09-25 07:10] LABS: Calcium 8.5 mg/dL (8.4-10.2); Potassium 3.9 mmol/L (3.5-5.1)
[2018-09-25] MEDS: ATORVASTATIN 40 MG TAB PO SCH (08:02)
[2018-09-25] MEDS: FAMOTIDINE 20 MG TAB PO SCH ×2 (08:02→20:41)
[2018-09-25] MEDS: ISOSORBIDE MONONITRATE ER 30 MG TAB.ER.24H PO SCH ×2 (08:03→20:40)
[2018-09-25] MEDS: hydrALAZINE HCL 25 MG TAB PO SCH ×2 (08:03→20:40)
[2018-09-25] MEDS: PHENYTOIN SODIUM EXTENDED 100 MG CAP PO SCH ×2 (08:03→20:40)
[2018-09-25] MEDS: FUROSEMIDE 10 MG/ML 4 ML VIAL IV SCH ×2 (08:03→15:45)
[2018-09-25] MEDS: levETIRAcetam 500 MG TAB PO SCH ×2 (08:03→20:40)
[2018-09-25] MEDS: LISINOPRIL 10 MG TAB PO SCH (08:03)
[2018-09-25] MEDS: METOPROLOL SUCCINATE (ER) 25 MG TAB.ER.24H PO SCH (08:04)
[2018-09-25] MEDS: SERTRALINE 100 MG TAB PO SCH (08:04)
--- NOTE | 2018-09-25 08:49 | XR ---
EXAMINATION TYPE: XR chest 1V portable DATE OF EXAM: 09/25/2018 COMPARISON: 09/24/2018 HISTORY: Shortness of breath TECHNIQUE: Single frontal view of the chest is obtained. FINDINGS: Bilateral consolidation, pleural effusion diffuse interstitial pattern. Heart size promine nt. No pneumothorax. Suspect underlying COPD. Diffuse osteopenia. IMPRESSION: Pattern favors CHF stable in appearance. Underlying pneumonia not excluded.
--- NOTE | 2018-09-25 10:40 | CDI ---
Documentation Clarification Form Date: 09/25/2018 10:17:21 AM From: Sera Brown RN, CCDS Admit Date: 09/23/2018 10:27:00 PM Patient Name: Sue Cruz Visit Number: [id number] ATTENTION: The Clinical Documentation Specialists (CDI) and [facility] Coding Staff appreciate your assistance in clarifying documentation. Please respond to the clarification below the line at the bottom and electronically sign. The CDI & [facility] Coding staff will review the response and follow-up if needed. Please note: Queries are made part of the Legal Health Record. If you have any questions, please contact the author of this message via ITS. Dr. Danielito Santiago The patient presented with gradually worsening SOB History/Risk Factors: CHF, COPD, HTN, DM, HGB of 5.9 per blood draw at [facility] Tobacco use: former smoker Clinical Indicators: Vital signs: temp 98.1, HR 103, RR 32, B/P 166/65, Pulse oximetry: Spo2 98% on 100% NRB 09/24 H&P: "Lungs: NOLAN Rales, no ronchi or wheezing appreciated , no accessory muscle use." 09/24 Cardiology: Lung/Breathing assessment:"LUNGS with decreased air exchange bilaterally. No wheezes." Treatment: Breathing TX: ventolin INH Q 4 hrs Pulse ox per unit protocol O2/BiPap: 100% NRB, then placed on BIPAP 10/5 80% weaned down to 65%, then decreased back to 1005 NRB mask, then decreased to 15L high flow nasal cannula In your professional opinion, can you please clarify if these findings signify one of the following conditions? Acuity Acute Chronic Acute on Chronic Specificity Respiratory Failure (further specify (if known)): With hypercapnia? (pCO2 >50 and pH <7.35) With hypoxia? (pO2 <60 mm Hg or SpO2 <91% on room air) Other Diagnosis, please specify Unable to determine (Last Revision: June 2017) REINAD
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
[2018-09-25 12:20] LABS: Glucose,Whole Blood 305 mg/dL (75-99)
--- NOTE | 2018-09-25 13:57 | ECHOF ---
Referral Reason:CHF exacerbation MEASUREMENTS -------- HEIGHT: 165.1 cm WEIGHT: 59.9 kg BP: 120/58 IVSd: 0.9 cm (0.6 - 1.1) LVIDd: 4.5 cm (3.9 - 5.3) LVPWd: 1.0 cm (0.6 - 1.1) IVSs: 1.4 cm LVIDs: 3.0 cm LVPWs: 1.5 cm LA Diam: 3.3 cm (2.7 - 3.8) RVIDd: 3.0 cm (< 3.3) LAESV Index (A-L): 22.11 ml/m Ao Diam: 2.7 cm (2.0 - 3.7) AV Cusp: 1.8 cm (1.5 - 2.6) EPSS: 1.2 cm MV E Gurpreet: 1.69 m/s MV DecT: 180 ms MV A Gurpreet: 1.23 m/s MV E/A Ratio: 1.38 RAP: 15.00 mmHg RVSP: 63.65 mmHg MV EF SLOPE: 65.82 mm/s (70 - 150) MV EXCURSION: 16.10 mm (> 18.000) FINDINGS -------- Sinus rhythm. This was a technically good study. The left ventricular size is normal. Left ventricular wall thickness is normal. Overall left vent ricular systolic function is mild-moderately impaired with, an EF between 40 - 45 %. Basal inferior LV wall motion is hypokinetic. Mid lateral LV wall motion is hypokinetic. Mid inferior LV wall motion is hypokinetic. Apical lateral LV wall motion is hypokinetic. The right ventricle is normal in size. Normal LA size by volume 22+/-6 ml/m2. The right atrium is normal in size. The atrial septal defect shunts from left to right. There is mild aortic valve sclerosis. The mitral valve is normal. The mitral valve leaflets are mildly thickened. [id number] tricuspid regurgitation present. There is severe pulmonary hypertension. The rig ht ventricular systolic pressure, as measured by Doppler, is 63.65mmHg. Trace/mild (physiologic) pulmonic regurgitation. The aortic root size is normal. The inferior vena cava is dilated with poor inspiratory collapse which is consistent with estimated r ight atrial pressure of 15 mmHg. There is no pericardial effusion. CONCLUSIONS -------- 1. Sinus rhythm. 2. This was a technically good study. 3. The left ventricular size is normal. 4. Left ventricular wall thickness is normal. 5. Overall left ventricular systolic function is mild-moderately impaired with, an EF between 40 - 45 %. 6. Basal inferior LV wall motion is hypokinetic. 7. Mid lateral LV wall motion is hypokinetic. 8. Mid inferior LV wall motion is hypokinetic. 9. Apical lateral LV wall motion is hypokinetic. 10. The right ventricle is normal in size. 11. Normal LA size by volume 22+/-6 ml/m2. 12. The right atrium is normal in size. 13. The atrial septal defect shunts from left to right. 14. There is mild aortic valve sclerosis. 15. The mitral valve is normal. 16. The mitral valve leaflets are mildly thickened. 17. [id number] tricuspid regurgitation present. 18. There is severe pulmonary hypertension. 19. The right ventricular systolic pressure, as measured by Doppler, is 63.65mmHg. 20. Trace/mild (physiologic) pulmonic regurgitation. 21. The aortic root size is normal. 22. The inferior vena cava is dilated with poor inspiratory collapse which is consistent with estimat ed right atrial pressure of 15 mmHg. 23. There is no pericardial effusion. DATA ANALYSIS ASSISTANT: Socorro Tucker RDCS
--- NOTE | 2018-09-25 14:48 | P.PN ---
Subjective Progress Note Date: 09/25/18 Patient reports that her breathing is not getting any better she is still requiring too much oxygen and she is getting short of breath. On review of the x-rays patient congestive heart failure is improving but there is bibasilar atelectasis versus infiltrate cannot be ruled out been reported. No clinical evidence of infection or infectious process at this point. Patient is being followed by cardiology services for her CHF exacerbation and type II NSTEMI. Patient denies chest pain, palpitation, fever, chills, nausea, vomiting, diarrhea, headache, dizziness and denies rest of the review system. Of note is that patient was admitted to this hospital with the significant oxygen requirement and impending hypoxic acute respiratory failure was given BiPAP mask overnight and her condition improved oxygenation remains continued to be an issue and patient was requiring high flow oxygen to maintain her oxygenation as of today also. Patient's chest x-rays being done and showed stability in the congestive heart failure appearance and improvement in pulmonary edema. Objective - Vital Signs Vital signs: Vital Signs Temp 98.6 F 09/25/18 12:00 Pulse 89 09/25/18 12:00 Resp 20 09/25/18 12:00 BP 163/69 09/25/18 12:00 Pulse Ox 96 09/25/18 12:00 Intake & Output 09/24/18 09/25/18 09/25/18 18:59 06:59 18:59 Intake Total 90 840 200 Output Total 350 400 Balance -260 440 200 Weight 65.5 kg 60 kg Intake: IV 40 20 Invasive Line 1 30 20 Invasive Line 2 10 Oral 90 800 180 Output: Urine 350 400 Other: Voiding Method Indwelling Catheter Bedpan Bedpan # Voids 0 1 1 - Constitutional General appearance: Present: cooperative, severe distress - EENT Eyes: Present: EOMI ENT: Present: hearing grossly normal, NA/AT - Neck Neck: Present: normal ROM. Absent: lymphadenopathy, rigidity - Respiratory Details: Scattered rhonchi and wheezes heard with bibasilar fine crackles few coarse central crackles also appreciated. - Cardiovascular Details: Rate rhythm regular - Gastrointestinal General gastrointestinal: Present: normal bowel sounds, soft. Absent: distended, rigid, tenderness - Neurologic Neurologic: Present: CNII-XII intact, focal deficits - Psychiatric Psychiatric: Present: A&O x's 3, appropriate affect, intact judgment & insight - Allied health notes Allied health notes reviewed: nursing - Labs CBC & Chem 7: 09/25/18 06:28 09/25/18 06:28 Labs: Abnormal Lab Results - Last 24 Hours (Table) 09/24/18 09/24/18 09/24/18 Range/Units 16:39 17:33 21:02 WBC 11.8 H (3.8-10.6) k/uL RBC 2.65 L (3.80-5.40) m/uL Hgb 8.0 L (11.4-16.0) gm/dL Hct 26.7 L (34.0-46.0) % MCV 100.5 H (80.0-100.0) fL MCHC 30.0 L (31.0-37.0) g/dL RDW 17.8 H (11.5-15.5) % Carbon Dioxide (22-30) mmol/L BUN (7-17) mg/dL POC Glucose (mg/dL) 291 H 352 H (75-99) mg/dL 09/25/18 09/25/18 09/25/18 Range/Units 06:28 06:28 06:34 WBC (3.8-10.6) k/uL RBC 2.67 L (3.80-5.40) m/uL Hgb 8.1 L (11.4-16.0) gm/dL Hct 26.6 L (34.0-46.0) % MCV (80.0-100.0) fL MCHC 30.3 L (31.0-37.0) g/dL RDW 17.6 H (11.5-15.5) % Carbon Dioxide 31 H (22-30) mmol/L BUN 41 H (7-17) mg/dL POC Glucose (mg/dL) 104 H (75-99) mg/dL 09/25/18 Range/Units 11:43 WBC (3.8-10.6) k/uL RBC (3.80-5.40) m/uL Hgb (11.4-16.0) gm/dL Hct (34.0-46.0) % MCV (80.0-100.0) fL MCHC (31.0-37.0) g/dL RDW (11.5-15.5) % Carbon Dioxide (22-30) mmol/L BUN (7-17) mg/dL POC Glucose (mg/dL) 305 H (75-99) mg/dL Assessment and Plan (1) Acute respiratory failure with hypoxia Narrative/Plan: Still requiring high oxygen flow rate to maintain her oxygenation. Current Visit: Yes Status: Acute Priority: High Code(s): J96.01 - ACUTE RESPIRATORY FAILURE WITH HYPOXIA SNOMED Code(s): 56874917 (2) Diabetes mellitus Current Visit: No Status: Acute Priority: Medium Code(s): E11.9 - TYPE 2 DIABETES MELLITUS WITHOUT COMPLICATIONS SNOMED Code(s): 10042062 (3) Essential (primary) hypertension Current Visit: Yes Status: Acute Priority: Medium Code(s): I10 - ESSENTIAL (PRIMARY) HYPERTENSION SNOMED Code(s): 07671363 (4) Seizure disorder Current Visit: No Status: Acute Priority: Medium Code(s): G40.909 - EPILEPSY, UNSP, NOT INTRACTABLE, WITHOUT STATUS EPILEPTICUS SNOMED Code(s): 902589184 (5) Congestive heart failure Current Visit: Yes Status: Acute Priority: High Code(s): I50.9 - HEART FAILURE, UNSPECIFIED SNOMED Code(s): 86190816 (6) Decubitus skin ulcer Current Visit: Yes Status: Acute Priority: High Code(s): L89.90 - PRESSURE ULCER OF UNSPECIFIED SITE, UNSPECIFIED STAGE SNOMED Code(s): 090250547 (7) Elevated troponin I level Current Visit: Yes Status: Acute Priority: High Code(s): R74.8 - ABNORMAL LEVELS OF OTHER SERUM ENZYMES SNOMED Code(s): 920005239 (8) Normocytic anemia Current Visit: Yes Status: Acute Priority: High Code(s): D64.9 - ANEMIA, UNSPECIFIED SNOMED Code(s): 520931506 Plan: Pt. is clinically improving from her CHF exacerbation and will continue current management, may need to change Lasix to oral route in preparation for discharge. She dose have h/o COPD but on her medication list there was no schedule medication for it, medical records from outside facility not yet available, will start her on SYMBICORT schedule inhailors along with Albuterol HHN. Continue oxygen for now but pt's overall CHF is improving. Although CXR may suggest "cannot r/o infiltrate" but clinically there is no indication for infective process at this point in time. Pt. initially requested FULL CODE but today she requested to be DNR in case of cardio-pulmonary arrest, will honor pt's wishes. Pt's Hb is stable and no further episodes of GI bleed noted or reported. Will increase activity as tolerated and home O2 evaluation may be needed prior to discharge. Time with Patient: Greater than 30
[2018-09-25 17:04] LABS: Glucose,Whole Blood 269 mg/dL (75-99)
[2018-09-25] MEDS: SYMBICORT 80-4.5 MCG INHALER INHALATION SCH (20:18)
[2018-09-25] MEDS: ALPRAZolam 1 MG TAB PO SCH (20:41)
[2018-09-25 20:49] LABS: Glucose,Whole Blood 306 mg/dL (75-99)
[2018-09-25 20:49] LABS: Glucose,Whole Blood 370 mg/dL (75-99)
[2018-09-25] MEDS: INSULIN DETEMIR (LEVEMIR) 100 UNIT/ML SYR SQ SCH (20:50)
[2018-09-25] MEDS: SODIUM CHLORIDE 0.9% 1,000 ML IV SCH (21:22)
--- NOTE | 2018-09-25 22:32 | P.PN ---
Subjective Progress Note Date: 09/25/18 Principal diagnosis: Anemia Patient seen lying in bed with no acute complaints. Reports one nonbloody non- melanotic bowel movement. Tolerating diet. Hemoglobin stable at 8.1. Objective - Vital Signs Vital signs: Vital Signs Temp 97.3 F L 09/25/18 21:44 Pulse 89 09/25/18 21:44 Resp 18 09/25/18 21:44 BP 134/78 09/25/18 21:44 Pulse Ox 90 L 09/25/18 21:44 Intake & Output 09/25/18 09/25/18 09/26/18 06:59 18:59 06:59 Intake Total 840 450 Output Total 400 300 Balance 440 150 Weight 60 kg Intake: IV 40 30 Invasive Line 1 30 30 Invasive Line 2 10 Oral 800 420 Output: Urine 400 300 Other: Voiding Method Bedpan Bedpan Bedpan # Voids 1 2 - Exam On physical examination, patient appears comfortable in no apparent distress. HEAD: Normocephalic, atraumatic. EYES: No scleral icterus. No conjunctival injection. MOUTH: No lesions, tongue midline. NECK: Trachea midline, no gross abnormalities. CHEST: Decreased air entry bilaterally. HEART: S1-S2 appreciated. ABDOMEN: Soft, thin and nontender. Bowel sounds are positive. No organomegaly. No guarding or rigidity. EXTREMITIES: Bilateral pedal edema. SKIN: No rashes, no jaundice. NEUROLOGIC: Alert and oriented x3. No focal deficits. - Labs CBC & Chem 7: 09/25/18 06:28 09/25/18 06:28 Labs: Abnormal Lab Results - Last 24 Hours (Table) 09/25/18 09/25/18 09/25/18 Range/Units 06:28 06:28 06:34 RBC 2.67 L (3.80-5.40) m/uL Hgb 8.1 L (11.4-16.0) gm/dL Hct 26.6 L (34.0-46.0) % MCHC 30.3 L (31.0-37.0) g/dL RDW 17.6 H (11.5-15.5) % Carbon Dioxide 31 H (22-30) mmol/L BUN 41 H (7-17) mg/dL POC Glucose (mg/dL) 104 H (75-99) mg/dL 09/25/18 09/25/18 09/25/18 Range/Units 11:43 16:52 20:46 RBC (3.80-5.40) m/uL Hgb (11.4-16.0) gm/dL Hct (34.0-46.0) % MCHC (31.0-37.0) g/dL RDW (11.5-15.5) % Carbon Dioxide (22-30) mmol/L BUN (7-17) mg/dL POC Glucose (mg/dL) 305 H 269 H 370 H (75-99) mg/dL 09/25/18 Range/Units 20:48 RBC (3.80-5.40) m/uL Hgb (11.4-16.0) gm/dL Hct (34.0-46.0) % MCHC (31.0-37.0) g/dL RDW (11.5-15.5) % Carbon Dioxide (22-30) mmol/L BUN (7-17) mg/dL POC Glucose (mg/dL) 306 H (75-99) mg/dL Assessment and Plan (1) Normocytic anemia Narrative/Plan: 73-year-old female with multiple medical comorbidities including COPD and systolic CHF who initially presented with shortness of breath and increased lower extremity swelling and was subsequently transferred from [facility] due to low hemoglobin. On questioning the patient has a known history of anemia which has been evaluated in the past 6 months per her history with endoscopic evaluation with findings of what she describes as bleeding vessels which were not intervened upon. On review of patient's medication she is on home iron therapy. It is likely that her anemia is multifactorial likely with a component of GI bleeding from what are likely AVMs by her description as well as anemia of chronic disease. Current Visit: Yes Status: Acute Priority: High Code(s): D64.9 - ANEMIA, UNSPECIFIED SNOMED Code(s): 001164713 Plan: Supportive care Okay for diet Continue to monitor hemoglobin and hematocrit and transfuse as needed Continue famotidine No plans for endoscopic evaluation at this time, and given the patient's respiratory status she would be high risk for any endoscopic procedure, however if the patient's has overt signs of bleeding or precipitous fall in hemoglobin w ill discuss further evaluation at that time Thank you for allowing us to participate in the care of the patient we will continue to follow
[2018-09-26] MEDS: ALBUTEROL NEBULIZED 2.5 MG/3 ML INHALATION SCH ×6 (00:09→19:57)
[2018-09-26] MEDS: FUROSEMIDE 10 MG/ML 4 ML VIAL IV SCH ×4 (01:12→23:06)
[2018-09-26] MEDS: HYDROcodone/APAP 10-325MG 1 EACH TAB PO SCH ×4 (03:59→21:07)
[2018-09-26 06:22] LABS: Glucose,Whole Blood 128 mg/dL (75-99)
[2018-09-26] MEDS: INSULIN ASPART (NovoLOG) 100 UNIT/ML VIAL SQ SCH ×4 (06:32→21:06)
[2018-09-26] MEDS ORDERED: DOCUSATE 100 MG CAP PO PRN (07:13)
[2018-09-26] MEDS ORDERED: BISACODYL 10 MG SUPP RECTAL STA (07:19)
[2018-09-26] MEDS: SYMBICORT 80-4.5 MCG INHALER INHALATION SCH ×2 (08:05→19:57)
[2018-09-26] MEDS ORDERED: POLYETHYLENE GLYCOL 3350 17 GM POWD.PACK PO STA (09:02)
[2018-09-26] MEDS: FAMOTIDINE 20 MG TAB PO SCH ×2 (09:03→21:07)
[2018-09-26] MEDS: LEVOTHYROXINE 137 MCG TAB PO SCH (09:03)
[2018-09-26] MEDS: LISINOPRIL 10 MG TAB PO SCH (09:03)
[2018-09-26] MEDS: ATORVASTATIN 40 MG TAB PO SCH (09:03)
[2018-09-26] MEDS: levETIRAcetam 500 MG TAB PO SCH ×2 (09:03→21:07)
[2018-09-26] MEDS: ISOSORBIDE MONONITRATE ER 30 MG TAB.ER.24H PO SCH ×2 (09:03→21:07)
[2018-09-26] MEDS: PHENYTOIN SODIUM EXTENDED 100 MG CAP PO SCH ×2 (09:04→21:07)
[2018-09-26] MEDS: SERTRALINE 100 MG TAB PO SCH (09:04)
[2018-09-26] MEDS: METOPROLOL SUCCINATE (ER) 25 MG TAB.ER.24H PO SCH (09:04)
[2018-09-26] MEDS: hydrALAZINE HCL 25 MG TAB PO SCH ×2 (09:05→21:07)
--- NOTE | 2018-09-26 09:58 | P.PN ---
Subjective Progress Note Date: 09/26/18 Principal diagnosis: shortness of breath Patient is a 73-year-old female with a past medical history of coronary artery disease, systolic CHF, COPD, hypertension, diabetes, and seizure disorder who was transferred to the emergency department from [facility]. Patient had been experiencing shortness of breath and was noted to have severe anemia with a hemoglobin of 5.9, she has been recovering from a left hip fracture repair in July 2018 at [facility] [place] emergency department she received 2 units of packed red blood cells and was tra nsferred here for further management. On arrival here she was noted to have a hemoglobin at 10.1, sodium 136, BUN 38, glucose 331, and troponin 0.186. She was also noted to have positive fecal occult blood. EKG did not reveal any signs of acute ischemia. She was found have an acute exacerbation of CHF and she was started on Lasix 40 mg IV every 8. She was also started on sliding scale insulin and Levemir due to hyperglycemia. Cardiology was consulted. GI was also consulted. Cardiology evaluated the patient and felt that her elevated troponin was likely stress-induced due to her severe anemia. She was seen by GI and was not having any active signs of a GI bleed. She also states that she has had chronic anemia with hemoglobins as low as 5. She's had a recent EGD and colonoscopy as an outpatient. She states they were unable to find anything. GI felt she was appropriate for outpatient evaluation. Her hemoglobin remained stable after transfusion. Echocardiogram revealed an ejection fraction of 45- 50%, no priors available for comparison. She was also found to have an elevated Dilantin level on admission at [place]. Chest x-ray on 09/25 revealed pleural effusions with a diffuse interstitial pattern. Patient seen and examined at bedside. She complains of constipation. She also still feels short of breath. She denies any nausea or vomiting. She is upset and feels as though she is not being taken care of while here. She is frustrated that she has a bed alarm on. She denies any dysuria or chest pain. Objective - Vital Signs Vital signs: Vital Signs Temp 98.1 F 09/26/18 04:00 Pulse 91 09/26/18 04:00 Resp 20 09/26/18 04:00 BP 156/66 09/26/18 04:00 Pulse Ox 90 L 09/26/18 04:00 Intake & Output 09/25/18 09/26/18 09/26/18 18:59 06:59 18:59 Intake Total 450 Output Total 300 300 Balance 150 -300 Weight 61.6 kg Intake: IV 30 Invasive Line 1 30 Oral 420 Output: Urine 300 300 Other: Voiding Method Bedpan Bedpan # Voids 2 1 - Exam General: non toxic, no distress, appears at stated age Derm: warm, dry Head: atraumatic, normocephalic, symmetric Eyes: EOMI, no lid lag, anicteric sclera Mouth: no lip lesion, mucus membranes moist Cardiovascular: S1S2 reg, no murmur, positive posterior tibial pulse bilateral, Lungs: Crackles bilateral bases , no accessory muscle use Abdominal: soft, nontender to palpation, no guarding, no appreciable organomegaly Ext: no gross muscle atrophy, 2+ edema, no contractures Neuro: CN II-XI grossly intact, no focal neuro deficits Psych: Alert, oriented, appropriate affect - Labs CBC & Chem 7: 09/25/18 06:28 09/25/18 06:28 Labs: Abnormal Lab Results - Last 24 Hours (Table) 09/25/18 09/25/18 09/25/18 Range/Units 11:43 16:52 20:46 POC Glucose (mg/dL) 305 H 269 H 370 H (75-99) mg/dL 09/25/18 09/26/18 Range/Units 20:48 06:20 POC Glucose (mg/dL) 306 H 128 H (75-99) mg/dL Assessment and Plan Assessment: Exacerbation of systolic congestive heart failure with ejection fraction 45-50% -Cardiology recommendations appreciated -Continue diuresis with Lasix 40 IV every 8 hours -Strict I's and O's, daily weight -Continue with lisinopril, metoprolol, Imdur, hydralazine -Echocardiogram with ejection fraction 45-50% Constipation -MiraLAX 1 -Continue when necessary Colace Non-STEMI type II secondary to severe anemia -No plan for intervention at this point in time, known right coronary artery occlusion and appears chronic -Continue with aspirin, Lipitor, and Imdur 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 -Repeat hemoglobin this morning -Needs outpatient iron studies as patient recently received 2 units of packed red blood cells and these will not be accurate -Also would benefit from a reticulocyte count as an outpatient to ensure that she does not have a hypoproliferative disorder Elevated Dilantin level at outpatient facility -Continue with Dilantin -Repeat free Dilantin level here as well as ammonia Diabetes mellitus type 2 -Well-controlled at this time -Continue with Levemir and sliding scale insulin -Follow blood sugars Chronic: Hypertension COPD seizure disorder Hypothyroidism DVT prophylaxis: SCDS due to probable GI bleed Discussed with: Patient, nursing Anticipated discharge: 1-[address]: Return to [facility] A total of 35 minutes was spent on the care of this complex patient more than 50% of the time was spent in counseling and care coordination.
[2018-09-26 11:52] LABS: Glucose,Whole Blood 267 mg/dL (75-99)
[2018-09-26 12:47] LABS: African American GFR (CKD) >90 (>60 ml/min/1.73 sqM); Anion Gap 6 mmol/L; Blood Urea Nitrogen 38 mg/dL (7-17); Calcium 8.5 mg/dL (8.4-10.2); Carbon Dioxide 31 mmol/L (22-30); Chloride 100 mmol/L (98-107); Glucose 244 mg/dL (74-99); Potassium 4.1 mmol/L (3.5-5.1); Sodium 137 mmol/L (137-145)
--- NOTE | 2018-09-26 13:35 | P.PN ---
Subjective Progress Note Date: 09/26/18 This is a 73-year-old female who was transferred to a clear [place] from [facility] symptoms of progressive dyspnea, anemia and mild elevation of troponin. Patient recently underwent left hip surgery after fracture. She was in an automobile skilled nursing when she was noted to have severe anemia and was transferred to [facility], received blood. Subsequently transferred here. She has a known totally occluded RCA and follows with a extract wringer in [place]. She has chronic dyspnea on exertion but no chest pain. She has peripheral edema somewhat better compared to yesterday. She's had anemia before and underwent workup at the details of that are not available. She denies any gross bleeding or change in the color of her stool yet her Hemoccult was positive. She is currently on Lipitor 40 mg by mouth daily, hydralazine 25 mg by mouth twice a day, Imdur 30 mg by mouth twice a day, lisinopril 10 mg by mouth daily and metoprolol succinate 37.5 mg by mouth daily. She is currently on Lasix 40 mg IV push every 8 hours. 09/26/18 - upon examination, patient is resting comfortably in bed she appears much more comfortable and less short of breath today however she verbalizes that she does not feel any better. She continues on Lipitor 40 mg by mouth daily, Lasix 40 mg IV every 8 hours, hydralazine 25 mg by mouth twice a day, isosorbide 30 mg by mouth twice a day, lisinopril 10 mg by mouth daily and metoprolol succinate 37.5 mg by mouth daily. Labs this morning show potassium of 4.1, BUN 38 and creatinine of 0.68. Objective - Vital Signs Vital signs: Vital Signs Temp 98.7 F 09/26/18 12:00 Pulse 90 09/26/18 12:00 Resp 20 09/26/18 12:00 BP 163/70 09/26/18 12:00 Pulse Ox 98 09/26/18 12:00 Intake & Output 09/25/18 09/26/18 09/26/18 18:59 06:59 18:59 Intake Total 450 Output Total 300 300 350 Balance 150 -300 -350 Weight 61.6 kg Intake: IV 30 Invasive Line 1 30 Oral 420 Output: Urine 300 300 350 Other: Voiding Method Bedpan Bedpan Bedpan # Voids 2 1 1 # Bowel Movements 1 - Exam PHYSICAL EXAMINATION: HEENT: Head is atraumatic, normocephalic. Pupils equal, round. Neck is supple. There is no elevated jugular venous pressure. HEART EXAMINATION: Heart sounds regular, S1 and S2 with a systolic murmur. CHEST EXAMINATION: Lungs reveal diminished air exchange bilaterally. No chest wall tenderness is noted on palpation or with deep breathing. ABDOMEN: Soft, nontender. Bowel sounds are heard. No organomegaly noted. EXTREMITIES: 2+ peripheral pulses with evidence of +1 peripheral edema worse on left than right and no calf tenderness noted. NEUROLOGIC patient is awake, alert and oriented x3. . - Labs CBC & Chem 7: 09/25/18 06:28 09/26/18 10:13 Labs: Abnormal Lab Results - Last 24 Hours (Table) 09/25/18 09/25/18 09/25/18 Range/Units 16:52 20:46 20:48 Carbon Dioxide (22-30) mmol/L BUN (7-17) mg/dL Glucose (74-99) mg/dL POC Glucose (mg/dL) 269 H 370 H 306 H (75-99) mg/dL 09/26/18 09/26/18 09/26/18 Range/Units 06:20 10:13 11:46 Carbon Dioxide 31 H (22-30) mmol/L BUN 38 H (7-17) mg/dL Glucose 244 H (74-99) mg/dL POC Glucose (mg/dL) 128 H 267 H (75-99) mg/dL Assessment and Plan Assessment: #1 anemia, severe, status post transfusion of 2 units packed red blood cells with hemoglobin today of 8.1 #2 mild elevation of troponin, likely secondary to supply demand mismatch, not primary ischemic event #3 peripheral edema with findings of congestive heart failure, awaiting echocardiogram results to assess LV systolic function #4 history of CAD with known total occlusion of RCA #5 diabetes mellitus #6 COPD #7 hypertension #8 hyperlipidemia Plan: From cardiology perspective, medications were reviewed and will continue the same. Renal function is stable. We will continue IV Lasix and likely switch to by mouth Lasix tomorrow. Continue to follow renal function and electrolytes. We will continue to follow the patient and write further recommendations accordingly. [employer] note has been reviewed, I agree with a documented findings and plan of care. Patient was seen and examined.
[2018-09-26 16:45] LABS: Glucose,Whole Blood 281 mg/dL (75-99)
[2018-09-26 20:47] LABS: Glucose,Whole Blood 255 mg/dL (75-99)
[2018-09-26] MEDS: ALPRAZolam 1 MG TAB PO SCH (21:06)
[2018-09-26] MEDS: INSULIN DETEMIR (LEVEMIR) 100 UNIT/ML SYR SQ SCH (21:06)
--- NOTE | 2018-09-26 22:36 | P.PN ---
Subjective Progress Note Date: 09/26/18 Principal diagnosis: Anemia Patient seen lying in bed reporting feeling better overall. Tolerating her diet. No abdominal pain or signs or symptoms of GI bleeding reported. She did have one nonbloody non-melanotic bowel movement today. Objective - Vital Signs Vital signs: Vital Signs Temp 99.4 F 09/26/18 16:00 Pulse 70 09/26/18 20:11 Resp 20 09/26/18 16:00 BP 131/63 09/26/18 16:00 Pulse Ox 93 L 09/26/18 16:00 Intake & Output 09/26/18 09/26/18 09/27/18 06:59 18:59 06:59 Output Total 300 650 Balance -300 -650 Weight 61.6 kg Output: Urine 300 650 Other: Voiding Method Bedpan Bedpan # Voids 1 1 # Bowel Movements 1 - Exam On physical examination, patient appears comfortable in no apparent distress. HEAD: Normocephalic, atraumatic. EYES: No scleral icterus. No conjunctival injection. MOUTH: No lesions, tongue midline. NECK: Trachea midline, no gross abnormalities. CHEST: Decreased air entry bilaterally. HEART: S1-S2 appreciated. ABDOMEN: Soft, thin and nontender. Bowel sounds are positive. No organomegaly. No guarding or rigidity. EXTREMITIES: Bilateral pedal edema. SKIN: No rashes, no jaundice. NEUROLOGIC: Alert and oriented x3. No focal deficits. - Labs CBC & Chem 7: 09/25/18 06:28 09/26/18 10:13 Labs: Abnormal Lab Results - Last 24 Hours (Table) 09/26/18 09/26/18 09/26/18 Range/Units 06:20 10:13 11:46 Carbon Dioxide 31 H (22-30) mmol/L BUN 38 H (7-17) mg/dL Glucose 244 H (74-99) mg/dL POC Glucose (mg/dL) 128 H 267 H (75-99) mg/dL 09/26/18 09/26/18 Range/Units 16:44 20:46 Carbon Dioxide (22-30) mmol/L BUN (7-17) mg/dL Glucose (74-99) mg/dL POC Glucose (mg/dL) 281 H 255 H (75-99) mg/dL Assessment and Plan (1) Normocytic anemia Narrative/Plan: 73-year-old female with multiple medical comorbidities including COPD and systolic CHF who initially presented with shortness of breath and increased lower extremity swelling and was subsequently transferred from [facility] due to low hemoglobin. On questioning the patient has a known history of anemia which has been evaluated in the past 6 months per her history with endoscopic evaluation with findings of what she describes as bleeding vessels which were not intervened upon. On review of patient's medication she is on home iron therapy. It is likely that her anemia is multifactorial likely with a component of GI bleeding from what are likely AVMs by her description as well as anemia of chronic disease. Current Visit: Yes Status: Acute Priority: High Code(s): D64.9 - ANEMIA, UNSPECIFIED SNOMED Code(s): 664000604 Plan: Supportive care Okay for diet Continue to monitor hemoglobin and hematocrit and transfuse as needed Continue famotidine No plans for endoscopic evaluation at this time, and given the patient's respi ratory status she would be high risk for any endoscopic procedure, however if the patient's has overt signs of bleeding or precipitous fall in hemoglobin will discuss further evaluation at that time Thank you for allowing us to participate in the care of the patient, the GI service will stand by please call us back with any questions or concerns
[2018-09-27] MEDS: ALBUTEROL NEBULIZED 2.5 MG/3 ML INHALATION SCH ×7 (01:02→23:52)
[2018-09-27] MEDS ORDERED: HALOPERIDOL LACTATE 5 MG/ML 1 ML VIAL IM ONE (03:06)
[2018-09-27] MEDS: HYDROcodone/APAP 10-325MG 1 EACH TAB PO SCH ×4 (04:47→22:19)
[2018-09-27 06:24] LABS: Glucose,Whole Blood 136 mg/dL (75-99)
[2018-09-27 06:25] LABS: Anisocytosis Slight; HCT 27.9 % (34.0-46.0); HGB 8.2 gm/dL (11.4-16.0); Hypochromasia Marked; MCHC 29.5 g/dL (31.0-37.0); MCV 101.6 fL (80.0-100.0); Macrocytosis Moderate; Mean Platelet Volume 7.2; Platelet Count 448 k/uL (150-450); Poikilocytosis Slight; RBC 2.75 m/uL (3.80-5.40); RDW 16.4 % (11.5-15.5); WBC 6.2 k/uL (3.8-10.6)
[2018-09-27] MEDS: INSULIN ASPART (NovoLOG) 100 UNIT/ML VIAL SQ SCH ×4 (06:32→22:21)
[2018-09-27] MEDS: LEVOTHYROXINE 137 MCG TAB PO SCH (06:32)
[2018-09-27 06:40] LABS: Calcium 8.5 mg/dL (8.4-10.2); Potassium 3.9 mmol/L (3.5-5.1)
[2018-09-27] MEDS: SYMBICORT 80-4.5 MCG INHALER INHALATION SCH ×2 (07:50→20:20)
[2018-09-27] MEDS: SODIUM CHLORIDE 0.9% 1,000 ML IV SCH (08:58)
[2018-09-27] MEDS: ISOSORBIDE MONONITRATE ER 30 MG TAB.ER.24H PO SCH ×2 (09:18→22:20)
[2018-09-27] MEDS: hydrALAZINE HCL 25 MG TAB PO SCH ×2 (09:19→22:20)
[2018-09-27] MEDS: LISINOPRIL 10 MG TAB PO SCH (09:19)
[2018-09-27] MEDS: PHENYTOIN SODIUM EXTENDED 100 MG CAP PO SCH ×2 (09:19→22:19)
[2018-09-27] MEDS: SERTRALINE 100 MG TAB PO SCH (09:19)
[2018-09-27] MEDS: FAMOTIDINE 20 MG TAB PO SCH ×2 (09:19→22:21)
[2018-09-27] MEDS: ATORVASTATIN 40 MG TAB PO SCH (09:20)
[2018-09-27] MEDS: levETIRAcetam 500 MG TAB PO SCH ×2 (09:20→22:20)
[2018-09-27] MEDS: METOPROLOL SUCCINATE (ER) 25 MG TAB.ER.24H PO SCH (09:20)
[2018-09-27] MEDS: FUROSEMIDE 10 MG/ML 4 ML VIAL IV SCH (09:22)
--- NOTE | 2018-09-27 09:48 | P.PN ---
Subjective Progress Note Date: 09/27/18 Principal diagnosis: shortness of breath Patient is a 73-year-old female with a past medical history of coronary artery disease, systolic CHF, COPD, hypertension, diabetes, and seizure disorder who was transferred to the emergency department from [facility]. Patient had been experiencing shortness of breath and was noted to have severe anemia with a hemoglobin of 5.9, she has been recovering from a left hip fracture repair in July 2018 at [facility]. At [place] emergency department she received 2 units of packed red blood cells and was transferred here for further management. On arrival here she was noted to have a hemoglobin at 10.1, sodium 136, BUN 38, glucose 331, and troponin 0.186. She was also noted to have positive fecal occult blood. EKG did not reveal any signs of acute ischemia. She was found have an acute exacerbation of CHF and she was started on Lasix 40 mg IV every 8. She was also started on sliding scale insulin and Levemir due to hyperglycemia. Cardiology was consulted. GI was also consulted. Cardiology evaluated the patient and felt that her elevated troponin was likely stress-induced due to her severe anemia. She was seen by GI and was not having any active signs of a GI bleed. She also states that she has had chronic anemia with hemoglobins as low as 5. She's had a recent EGD and colonoscopy as an outpatient. She states they were unable to find anything. GI felt she was appropriate for outpatient evaluation. Her hemoglobin remained stable after transfusion. Echocardiogram revealed an ejection fraction of 45- 50%, no priors available for comparison. She was also found to have an elevated Dilantin level on admission at [place]. Chest x-ray on 09/25 revealed pleural effusions with a diffuse interstitial pattern. She was continued on IV lasix. She refused to have IV replaced on 09/26 overnight and lasix was switched to oral. Patient seen and examined at bedside. Feeling short of breath today and tired. No chest pain, feeling better from constipation being resolved. D/W her that likely return to [facility] tomorrow. Objective - Vital Signs Vital signs: Vital Signs Temp 98.7 F 09/26/18 23:05 Pulse 82 09/27/18 08:00 Resp 20 09/27/18 04:45 BP 157/71 09/27/18 04:45 Pulse Ox 97 09/27/18 04:45 Intake & Output 09/26/18 09/27/18 09/27/18 18:59 06:59 18:59 Output Total 650 500 Balance -650 -500 Weight 61 kg Output: Urine 650 500 Other: Voiding Method Bedpan Bedpan # Voids 1 1 # Bowel Movements 1 1 - Exam General: non toxic, no distress, appears at stated age Derm: warm, dry Head: atraumatic, normocephalic, symmetric Eyes: EOMI, no lid lag, anicteric sclera Mouth: no lip lesion, mucus membranes moist Cardiovascular: S1S2 reg, no murmur, positive posterior tibial pulse bilateral, Lungs: Crackles bilateral bases , no accessory muscle use Abdominal: soft, nontender to palpation, no guarding, no appreciable organomegaly Ext: no gross muscle atrophy, 2+ edema, no contractures Neuro: CN II-XI grossly intact, no focal neuro deficits Psych: Alert, oriented, appropriate affect - Labs CBC & Chem 7: 09/27/18 05:33 09/27/18 05:33 Labs: Abnormal Lab Results - Last 24 Hours (Table) 09/26/18 09/26/18 09/26/18 Range/Units 10:13 11:46 16:44 RBC (3.80-5.40) m/uL Hgb (11.4-16.0) gm/dL Hct (34.0-46.0) % MCV (80.0-100.0) fL MCHC (31.0-37.0) g/dL RDW (11.5-15.5) % Carbon Dioxide 31 H (22-30) mmol/L BUN 38 H (7-17) mg/dL Glucose 244 H (74-99) mg/dL POC Glucose (mg/dL) 267 H 281 H (75-99) mg/dL 09/26/18 09/27/18 09/27/18 Range/Units 20:46 05:33 05:33 RBC 2.75 L (3.80-5.40) m/uL Hgb 8.2 L (11.4-16.0) gm/dL Hct 27.9 L (34.0-46.0) % MCV 101.6 H (80.0-100.0) fL MCHC 29.5 L (31.0-37.0) g/dL RDW 16.4 H (11.5-15.5) % Carbon Dioxide 35 H (22-30) mmol/L BUN 35 H (7-17) mg/dL Glucose 127 H (74-99) mg/dL POC Glucose (mg/dL) 255 H (75-99) mg/dL 09/27/18 Range/Units 06:10 RBC (3.80-5.40) m/uL Hgb (11.4-16.0) gm/dL Hct (34.0-46.0) % MCV (80.0-100.0) fL MCHC (31.0-37.0) g/dL RDW (11.5-15.5) % Carbon Dioxide (22-30) mmol/L BUN (7-17) mg/dL Glucose (74-99) mg/dL POC Glucose (mg/dL) 136 H (75-99) mg/dL Assessment and Plan Assessment: Exacerbation of systolic congestive heart failure with ejection fraction 45-50% -Cardiology recommendations appreciated -Continue diuresis refused to have IV replaced, lasix 40 mg PO TID. -Strict I's and O's, daily weight -Continue with lisinopril, metoprolol, Imdur, hydralazine -Echocardiogram with ejection fraction 45-50% Non-STEMI type II secondary to severe anemia -No plan for intervention at this point in time, known right coronary artery occlusion and appears chronic -Continue with Lipitor, and Imdur - resume ASA with stable HGB,, PLavix is on hold. 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 -Follow CBC -Needs outpatient iron studies as patient recently received 2 units of packed red blood cells and these will not be accurate -Also would benefit from a reticulocyte count as an outpatient to ensure that she does not have a hypoproliferative disorder - resume home iron Elevated Dilantin level at outpatient facility -Continue with Dilantin -Repeat free Dilantin level pending -ammonia normal Diabetes mellitus type 2 -Well-controlled at this time -Continue with Levemir and sliding scale insulin -Follow blood sugars Constipation, resolved Chronic: Hypertension COPD seizure disorder Hypothyroidism DVT prophylaxis: SCDS due to probable GI bleed Discussed with: Patient, nursing Anticipated discharge: [address]: Return to [facility] A total of 35 minutes was spent on the care of this complex patient more than 50% of the time was spent in counseling and care coordination.
--- NOTE | 2018-09-27 09:49 | P.PN ---
Subjective Progress Note Date: 09/27/18 This is a 73-year-old female who was transferred to a clear [place] from [facility] symptoms of progressive dyspnea, anemia and mild elevation of troponin. Patient recently underwent left hip surgery after fracture. She was in an automobile detention when she was noted to have severe anemia and was transferred to [facility], received blood. Subsequently transferred here. She has a known totally occluded RCA and follows with a charging plug placer in [place]. She has chronic dyspnea on exertion but no chest pain. She has peripheral edema somewhat better compared to yesterday. She's had anemia before and underwent workup at the details of that are not available. She denies any gross bleeding or change in the color of her stool yet her Hemoccult was positive. She is currently on Lipitor 40 mg by mouth daily, hydralazine 25 mg by mouth twice a day, Imdur 30 mg by mouth twice a day, lisinopril 10 mg by mouth daily and metoprolol succinate 37.5 mg by mouth daily. She is currently on Lasix 40 mg IV push every 8 hours. 09/26/18 - upon examination, patient is resting comfortably in bed she appears much more comfortable and less short of breath today however she verbalizes that she does not feel any better. She continues on Lipitor 40 mg by mouth daily, Lasix 40 mg IV every 8 hours, hydralazine 25 mg by mouth twice a day, isosorbide 30 mg by mouth twice a day, lisinopril 10 mg by mouth daily and metoprolol succinate 37.5 mg by mouth daily. Labs this morning show potassium of 4.1, BUN 38 and creatinine of 0.68. 09/27/18 - upon examination, patient is resting comfortably in bed. She continues to complain of some leg discomfort and weakness. She does not feel she is doing any better. She says she feels "awful". She is quite anxious to be discharged. Laboratory values this morning show a stable hemoglobin of 8.2, BUN 35 and creatinine 0.78. Objective - Vital Signs Vital signs: Vital Signs Temp 98.7 F 09/26/18 23:05 Pulse 82 09/27/18 08:00 Resp 20 09/27/18 04:45 BP 157/71 09/27/18 04:45 Pulse Ox 97 09/27/18 04:45 Intake & Output 09/26/18 09/27/18 09/27/18 18:59 06:59 18:59 Output Total 650 500 Balance -650 -500 Weight 61 kg Output: Urine 650 500 Other: Voiding Method Bedpan Bedpan # Voids 1 1 # Bowel Movements 1 1 - Exam PHYSICAL EXAMINATION: HEENT: Head is atraumatic, normocephalic. Pupils equal, round. Neck is supple. There is no elevated jugular venous pressure. HEART EXAMINATION: Heart sounds regular, S1 and S2 with a systolic murmur. CHEST EXAMINATION: Lungs reveal diminished air exchange bilaterally. No chest wall tenderness is noted on palpation or with deep breathing. ABDOMEN: Soft, nontender. Bowel sounds are heard. No organomegaly noted. EXTREMITIES: 2+ peripheral pulses with evidence of +1 peripheral edema worse on left than right and no calf tenderness noted. NEUROLOGIC patient is awake, alert and oriented x3. . - Labs CBC & Chem 7: 09/27/18 05:33 09/27/18 05:33 Labs: Abnormal Lab Results - Last 24 Hours (Table) 09/26/18 09/26/18 09/26/18 Range/Units 10:13 11:46 16:44 RBC (3.80-5.40) m/uL Hgb (11.4-16.0) gm/dL Hct (34.0-46.0) % MCV (80.0-100.0) fL MCHC (31.0-37.0) g/dL RDW (11.5-15.5) % Carbon Dioxide 31 H (22-30) mmol/L BUN 38 H (7-17) mg/dL Glucose 244 H (74-99) mg/dL POC Glucose (mg/dL) 267 H 281 H (75-99) mg/dL 09/26/18 09/27/18 09/27/18 Range/Units 20:46 05:33 05:33 RBC 2.75 L (3.80-5.40) m/uL Hgb 8.2 L (11.4-16.0) gm/dL Hct 27.9 L (34.0-46.0) % MCV 101.6 H (80.0-100.0) fL MCHC 29.5 L (31.0-37.0) g/dL RDW 16.4 H (11.5-15.5) % Carbon Dioxide 35 H (22-30) mmol/L BUN 35 H (7-17) mg/dL Glucose 127 H (74-99) mg/dL POC Glucose (mg/dL) 255 H (75-99) mg/dL 09/27/18 Range/Units 06:10 RBC (3.80-5.40) m/uL Hgb (11.4-16.0) gm/dL Hct (34.0-46.0) % MCV (80.0-100.0) fL MCHC (31.0-37.0) g/dL RDW (11.5-15.5) % Carbon Dioxide (22-30) mmol/L BUN (7-17) mg/dL Glucose (74-99) mg/dL POC Glucose (mg/dL) 136 H (75-99) mg/dL Assessment and Plan Assessment: #1 anemia, severe, status post transfusion of 2 units packed red blood cells with hemoglobin today of 8.1 #2 mild elevation of troponin, likely secondary to supply demand mismatch, not primary ischemic event #3 peripheral edema with findings of congestive heart failure, awaiting echocardiogram results to assess LV systolic function #4 history of CAD with known total occlusion of RCA #5 diabetes mellitus #6 COPD #7 hypertension #8 hyperlipidemia Plan: From cardiology perspective, medications were reviewed and will continue the same. At this time, we will follow the patient on an as-needed basis. Please do not hesitate to contact us with questions. CIVIL DEFENSE DIRECTOR note has been reviewed, I agree with a documented findings and plan of care. Patient was seen and examined.
[2018-09-27 12:11] LABS: Glucose,Whole Blood 215 mg/dL (75-99)
[2018-09-27] MEDS: FERROUS SULFATE 325 MG TAB PO SCH (15:44)
[2018-09-27] MEDS: FUROSEMIDE 40 MG TAB PO SCH ×2 (15:44→22:30)
[2018-09-27 17:10] LABS: Glucose,Whole Blood 274 mg/dL (75-99)
[2018-09-27 21:24] LABS: Glucose,Whole Blood 358 mg/dL (75-99)
[2018-09-27] MEDS: INSULIN DETEMIR (LEVEMIR) 100 UNIT/ML SYR SQ SCH (22:21)
[2018-09-28] MEDS ORDERED: HALOPERIDOL LACTATE 5 MG/ML 1 ML VIAL IM STA (02:53)
[2018-09-28] MEDS: ALBUTEROL NEBULIZED 2.5 MG/3 ML INHALATION SCH ×5 (03:15→20:41)
[2018-09-28] MEDS: HYDROcodone/APAP 10-325MG 1 EACH TAB PO SCH ×4 (04:55→22:33)
[2018-09-28 06:36] LABS: Glucose,Whole Blood 142 mg/dL (75-99)
[2018-09-28] MEDS: LEVOTHYROXINE 137 MCG TAB PO SCH (07:13)
[2018-09-28] MEDS: FERROUS SULFATE 325 MG TAB PO SCH ×2 (07:13→16:38)
[2018-09-28] MEDS: INSULIN ASPART (NovoLOG) 100 UNIT/ML VIAL SQ SCH ×4 (07:14→22:34)
[2018-09-28] MEDS: SODIUM CHLORIDE 0.9% 1,000 ML IV SCH ×2 (07:15→21:50)
[2018-09-28 07:19] LABS: HGB 8.4 gm/dL (11.4-16.0); Hypochromasia Marked; MCH 30.2 pg (25.0-35.0); MCHC 29.9 g/dL (31.0-37.0); MCV 101.2 fL (80.0-100.0); Macrocytosis Slight; Mean Platelet Volume 6.9; Platelet Count 471 k/uL (150-450); Poikilocytosis Slight; RBC 2.77 m/uL (3.80-5.40); RDW 15.9 % (11.5-15.5); WBC 6.3 k/uL (3.8-10.6)
[2018-09-28 07:32] LABS: African American GFR (CKD) >90 (>60 ml/min/1.73 sqM); Anion Gap 6 mmol/L; Blood Urea Nitrogen 34 mg/dL (7-17); Calcium 8.6 mg/dL (8.4-10.2); Carbon Dioxide 33 mmol/L (22-30); Chloride 99 mmol/L (98-107); Glucose 118 mg/dL (74-99); Potassium 4.7 mmol/L (3.5-5.1); Sodium 138 mmol/L (137-145)
[2018-09-28] MEDS: ASPIRIN 81 MG PO SCH (09:07)
[2018-09-28] MEDS: ATORVASTATIN 40 MG TAB PO SCH (09:07)
[2018-09-28] MEDS: PHENYTOIN SODIUM EXTENDED 100 MG CAP PO SCH ×2 (09:07→22:33)
[2018-09-28] MEDS: levETIRAcetam 500 MG TAB PO SCH ×2 (09:07→22:33)
[2018-09-28] MEDS: FUROSEMIDE 40 MG TAB PO SCH ×3 (09:07→22:33)
[2018-09-28] MEDS: LISINOPRIL 10 MG TAB PO SCH (09:07)
[2018-09-28] MEDS: ISOSORBIDE MONONITRATE ER 30 MG TAB.ER.24H PO SCH ×2 (09:07→22:32)
[2018-09-28] MEDS: FAMOTIDINE 20 MG TAB PO SCH ×2 (09:07→22:33)
[2018-09-28] MEDS: hydrALAZINE HCL 25 MG TAB PO SCH ×2 (09:07→22:32)
[2018-09-28] MEDS: SERTRALINE 100 MG TAB PO SCH (09:08)
[2018-09-28] MEDS: METOPROLOL SUCCINATE (ER) 25 MG TAB.ER.24H PO SCH (09:08)
[2018-09-28] MEDS: SYMBICORT 80-4.5 MCG INHALER INHALATION SCH ×2 (09:22→20:49)
--- NOTE | 2018-09-28 09:30 | P.DS ---
Providers Date of admission: 09/23/18 22:27 Expected date of discharge: 09/28/18 Attending physician: Jaylin Saavedra MD Consults: 09/23/18 23:49 Consult Physician Routine Consulting Provider: Aman Ryan Consult Reason/Comments: CHF exacerbation. elevated troponin Do you want consulting provider notified?: Yes Primary care physician: Stated None Hospital Course: Discharge Diagnosis: Acute exacerbation of systolic congestive heart failure with ejection fraction 45-50% Acute on chronic anemia secondary to chronic GI bleed Non-STEMI type II secondary to severe anemia Diabetes mellitus type 2 Constipation Hypertension COPD Seizure disorder Hypothyroidism Hospital Course: Patient is a 73-year-old female with a past medical history of coronary artery disease, systolic CHF, COPD, hypertension, diabetes, and seizure disorder who was transferred to the emergency department from [facility]. Patient had been experiencing shortness of breath and was noted to have severe anemia with a hemoglobin of 5.9, she has been recovering from a left hip fracture repair in July 2018 at [facility]. At [place] emergency department she received 2 units of packed red blood cells and was transferred here for further management. On arrival here she was noted to have a hemoglobin at 10.1, sodium 136, BUN 38, glucose 331, and troponin 0.186. She was also noted to have positive fecal occult blood. EKG did not reveal any signs of acute ischemia. She was found have an acute exacerbation of CHF and she was started on Lasix 40 mg IV every 8. She was also started on sliding scale insulin and Levemir due to hyperglycemia. Cardiology was consulted. GI was also consulted. Cardiology evaluated the patient and felt that her elevated troponin was likely stress-induced due to her severe anemia. She was seen by GI and was not having any active signs of a GI bleed. She also states that she has had chronic anemia with hemoglobins as low as 5. She's had a recent EGD and colonoscopy as an outpatient. She states they were unable to find anything. GI felt she was appropriate for outpatient evaluation. Her hemoglobin remained stable after transfusion. Echocardiogram revealed an ejection fraction of 45- 50%, no priors available for comparison. She was also found to have an elevated Dilantin level on admission at [place], repeated here marginally elevated but drawn 4 hours before next dose so should be therapeutic taking that into consideration. Chest x-ray on 09/25 revealed pleural effusions with a diffuse interstitial pattern. She was continued on IV lasix. She refused to have IV replaced on 09/26 overnight and lasix was switched to oral. She had improved lower extremity edema on 09/27 and her shortness of breath had resolved, her HgB was stable. She was stable for discharge. Her lasix was increased to TID, Her Iron supplements were increased to twice daily. I recommend repeat CBC and BMP in 3-4 days, and repeat CBC with iron studies in 2 weeks (had blood prior to transfer here). Likely lasix could be decreased back to twice daily in the next 5-7 days once edema has resolved. Patient seen and examined at bedside. No chest pain, SOB, or nausea, edema better. Wants to go back to rehab. Vital signs reviewed and stable. General: non toxic, no distress, appears at stated age Derm: warm, dry Head: atraumatic, normocephalic, symmetric Eyes: EOMI, no lid lag, anicteric sclera Mouth: no lip lesion, mucus membranes moist Cardiovascular: S1S2 reg, no murmur, positive posterior tibial pulse bilateral, Lungs: CTA bilateral, no rhonchi, no rales , no accessory muscle use Abdominal: soft, nontender to palpation, no guarding, no appreciable organ omegaly Ext: no gross muscle atrophy, 1+ left, trace on the right, no contractures Neuro: CN II-XI grossly intact, no focal neuro deficits Psych: Alert, oriented, appropriate affect A total of 35 minutes of time were spent preparing this complex discharge summary . Pertinent Studies: Echo- ejection fraction of 40-45%, multiple areas of hypokinesis, severe pulmonary hypertension RVSP 63.65 Chest x-ray-CHF Patient Condition at Discharge: Stable Plan - Discharge Summary Discharge Rx Participant: No New Discharge Prescriptions: New hydrALAZINE HCL [Apresoline] 25 mg PO BID tab Ferrous Sulfate [Iron (65 MG Elemental)] 325 mg PO BID-W/MEALS tab Furosemide [Lasix] 40 mg PO TID tab Budesonide/Formoterol Fumarate [Symbicort 80-4.5 Mcg Inhaler] 2 puff INHALATION AC-BID #1 inhaler Continue Sertraline [Zoloft] 150 mg PO DAILY Omeprazole [PriLOSEC] 20 mg PO BID Metoprolol Succinate [Toprol XL] 37.5 mg PO DAILY Magnesium Hydroxide [Milk of Magnesia Concentrate] 7,200 mg PO DAILY PRN PRN Reason: Constipation Lovastatin [Mevacor] 40 mg PO DAILY Lisinopril [Zestril] 10 mg PO DAILY Levothyroxine Sodium [Synthroid] 137 mcg PO DAILY levETIRAcetam [Keppra] 1,000 mg PO BID Isosorbide Mononitrate ER [Imdur] 30 mg PO BID Insulin Lispro [humaLOG Kwikpen] See Protocol SQ AC-TID Phenytoin Sodium Extended [Dilantin] 300 mg PO BID Bisacodyl 10 mg RECTAL DAILY PRN PRN Reason: Constipation Insulin Glargine,Hum.rec.anlog [Basaglar Kwikpen U-100] 15 unit SQ HS Aspirin [[place]utton Aspirin EC] 81 mg PO DAILY Albuterol Nebulized [Ventolin Nebulized] 2.5 mg INHALATION RT-Q4H Changed HYDROcodone/APAP 10-325MG [[place] 10-325] 1 tab PO Q6H PRN #12 tab PRN Reason: Pain Discontinued ALPRAZolam [Xanax] 2 mg PO HS Furosemide [Lasix] 40 mg PO BID Ferrous Sulfate [Iron (65 MG Elemental)] 325 mg PO DAILY Clopidogrel Bisulfate [Plavix] 75 mg PO DAILY Ramipril [Altace] 5 mg PO DAILY Discharge Medication List Albuterol Nebulized [Ventolin Nebulized] 2.5 mg INHALATION RT-Q4H 09/23/18 [History] Aspirin [Sutton Aspirin EC] 81 mg PO DAILY 09/23/18 [History] Bisacodyl 10 mg RECTAL DAILY PRN 09/23/18 [History] Insulin Glargine,Hum.rec.anlog [Basaglar Kwikpen U-100] 15 unit SQ HS 09/23/18 [History] Insulin Lispro [humaLOG Kwikpen] See Protocol SQ AC-TID 09/23/18 [History] Isosorbide Mononitrate ER [Imdur] 30 mg PO BID 09/23/18 [History] Levothyroxine Sodium [Synthroid] 137 mcg PO DAILY 09/23/18 [History] Lisinopril [Zestril] 10 mg PO DAILY 09/23/18 [History] Lovastatin [Mevacor] 40 mg PO DAILY 09/23/18 [History] Magnesium Hydroxide [Milk of Magnesia Concentrate] 7,200 mg PO DAILY PRN 09/23/18 [History] Metoprolol Succinate [Toprol XL] 37.5 mg PO DAILY 09/23/18 [History] Omeprazole [PriLOSEC] 20 mg PO BID 09/23/18 [History] Phenytoin Sodium Extended [Dilantin] 300 mg PO BID 09/23/18 [History] Sertraline [Zoloft] 150 mg PO DAILY 09/23/18 [History] levETIRAcetam [Keppra] 1,000 mg PO BID 09/23/18 [History] Budesonide/Formoterol Fumarate [Symbicort 80-4.5 Mcg Inhaler] 2 puff INHALATION AC-BID #1 inhaler 09/28/18 [Rx] Ferrous Sulfate [Iron (65 MG Elemental)] 325 mg PO BID-W/MEALS tab 09/28/18 [Rx] Furosemide [Lasix] 40 mg PO TID tab 09/28/18 [Rx] HYDROcodone/APAP 10-325MG [[place] 10-325] 1 tab PO Q6H PRN #12 tab 09/28/18 [Rx] hydrALAZINE HCL [Apresoline] 25 mg PO BID tab 09/28/18 [Rx] Follow up Appointment(s)/Referral(s): None,Stated [Primary Care Provider] - 1-2 days Activity/Diet/Wound Care/Special Instructions: [facility] Diet: Low sodium 2 G, carb consistent Activity: as tolerated Recommend: Repeat CBC and BMP in 3-4 days, then in 2 weeks Ferritin, iron level, TIBC, and Iron saturation (unable to do here as had already received blood on arrival and would not be accurate). 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
[2018-09-28 12:17] LABS: Glucose,Whole Blood 305 mg/dL (75-99)
[2018-09-28 13:21] VITALS: BMI 22.4
[2018-09-28 17:13] LABS: Glucose,Whole Blood 385 mg/dL (75-99)
[2018-09-28 21:19] LABS: Glucose,Whole Blood 314 mg/dL (75-99)
[2018-09-28] MEDS: INSULIN DETEMIR (LEVEMIR) 100 UNIT/ML SYR SQ SCH (22:34)
[2018-09-29] MEDS: ALBUTEROL NEBULIZED 2.5 MG/3 ML INHALATION SCH ×4 (00:15→12:43)
[2018-09-29] MEDS: HYDROcodone/APAP 10-325MG 1 EACH TAB PO SCH ×2 (03:21→08:34)
[2018-09-29 05:28] VITALS: BP 113/61; TEMP 98
[2018-09-29] MEDS: LEVOTHYROXINE 137 MCG TAB PO SCH (05:49)
[2018-09-29] MEDS: INSULIN ASPART (NovoLOG) 100 UNIT/ML VIAL SQ SCH ×2 (07:39→13:13)
[2018-09-29 07:41] LABS: Glucose,Whole Blood 56 mg/dL (75-99)
[2018-09-29 07:48] LABS: Glucose,Whole Blood 71 mg/dL (75-99)
[2018-09-29] MEDS: METOPROLOL SUCCINATE (ER) 25 MG TAB.ER.24H PO SCH (08:02)
[2018-09-29] MEDS: hydrALAZINE HCL 25 MG TAB PO SCH (08:02)
[2018-09-29] MEDS: ISOSORBIDE MONONITRATE ER 30 MG TAB.ER.24H PO SCH (08:02)
[2018-09-29] MEDS: FUROSEMIDE 40 MG TAB PO SCH (08:02)
[2018-09-29] MEDS: SERTRALINE 100 MG TAB PO SCH (08:02)
[2018-09-29] MEDS: LISINOPRIL 10 MG TAB PO SCH (08:02)
[2018-09-29] MEDS: levETIRAcetam 500 MG TAB PO SCH (08:03)
[2018-09-29] MEDS: FERROUS SULFATE 325 MG TAB PO SCH (08:03)
[2018-09-29] MEDS: ASPIRIN 81 MG PO SCH (08:03)
[2018-09-29] MEDS: ATORVASTATIN 40 MG TAB PO SCH (08:03)
[2018-09-29] MEDS: FAMOTIDINE 20 MG TAB PO SCH (08:03)
[2018-09-29] MEDS: PHENYTOIN SODIUM EXTENDED 100 MG CAP PO SCH (08:34)
[2018-09-29] MEDS: SYMBICORT 80-4.5 MCG INHALER INHALATION SCH (09:17)
[2018-09-29 12:06] LABS: Glucose,Whole Blood 302 mg/dL (75-99)
[2018-09-29 12:45] VITALS: RESP 16
--- NOTE | 2018-09-29 14:12 | P.DS ---
Providers Date of admission: 09/23/18 22:27 Expected date of discharge: 09/29/18 Attending physician: Jaylin Saavedra MD Consults: 09/23/18 23:49 Consult Physician Routine Consulting Provider: Aman Ryan Consult Reason/Comments: CHF exacerbation. elevated troponin Do you want consulting provider notified?: Yes Primary care physician: Stated None Hospital Course: Discharge Diagnosis: Acute exacerbation of systolic congestive heart failure with ejection fraction 45-50% Acute on chronic anemia secondary to chronic GI bleed Non-STEMI type II secondary to severe anemia Diabetes mellitus type 2 Constipation Hypertension COPD Seizure disorder Hypothyroidism Hospital Course: Patient is a 73-year-old female with a past medical history of coronary artery disease, systolic CHF, COPD, hypertension, diabetes, and seizure disorder who was transferred to the emergency department from [facility]. Patient had been experiencing shortness of breath and was noted to have severe anemia with a hemoglobin of 5.9, she has been recovering from a left hip fracture repair in July 2018 at [facility]. At [place] emergency department she received 2 units of packed red blood cells and was transferred here for further management. On arrival here she was noted to have a hemoglobin at 10.1, sodium 136, BUN 38, glucose 331, and troponin 0.186. She was also noted to have positive fecal occult blood. EKG did not reveal any signs of acute ischemia. She was found have an acute exacerbation of CHF and she was started on Lasix 40 mg IV every 8. She was also started on sliding scale insulin and Levemir due to hyperglycemia. Cardiology was consulted. GI was also consulted. Cardiology evaluated the patient and felt that her elevated troponin was likely stress-induced due to her severe anemia. She was seen by GI and was not having any active signs of a GI bleed. She also states that she has had chronic anemia with hemoglobins as low as 5. She's had a recent EGD and colonoscopy as an outpatient. She states they were unable to find anything. GI felt she was appropriate for outpatient evaluation. Her hemoglobin remained stable after transfusion. Echocardiogram revealed an ejection fraction of 45- 50%, no priors available for comparison. She was also found to have an elevated Dilantin level on admission at [place], repeated here marginally elevated but drawn 4 hours before next dose so should be therapeutic taking that into consideration. Chest x-ray on 09/25 revealed pleural effusions with a diffuse interstitial pattern. She was continued on IV lasix. She refused to have IV replaced on 09/26 overnight and lasix was switched to oral. She had improved lower extremity edema on 09/27 and her shortness of breath had resolved, her HgB was stable. She was stable for discharge. Her lasix was increased to TID, Her Iron supplements were increased to twice daily. I recommend repeat CBC and BMP in 3-4 days, and repeat CBC with iron studies in 2 weeks (had blood prior to transfer here). Likely lasix could be decreased back to twice daily in the next 5-7 days once edema has resolved. Patient seen and examined at bedside. No chest pain, SOB, or nausea, edema better. Wants to go back to rehab. Vital signs reviewed and stable. General: non toxic, no distress, appears at stated age Derm: warm, dry Head: atraumatic, normocephalic, symmetric Cardiovascular: S1S2 reg, no murmur, positive posterior tibial pulse bilateral, Lungs: CTA bilateral, no rhonchi, no rales , no accessory muscle use Abdominal: soft, nontender to palpation, no guarding, no appreciable organomegaly Ext: no gross muscle atrophy, 1+ bilateral, trace on the right, no contractures Neuro: CN II-XI grossly intact, no focal neuro deficits Psych: Alert, oriented, appropriate affect A total of 35 minutes of time were spent preparing this complex discharge summary . Pertinent Studies: Echo- ejection fraction of 40-45%, multiple areas of hypokinesis, severe pulmonary hypertension RVSP 63.65 Chest x-ray-CHF Patient Condition at Discharge: Stable Plan - Discharge Summary Discharge Rx Participant: No New Discharge Prescriptions: New hydrALAZINE HCL [Apresoline] 25 mg PO BID tab Ferrous Sulfate [Iron (65 MG Elemental)] 325 mg PO BID-W/MEALS tab Furosemide [Lasix] 40 mg PO TID tab Budesonide/Formoterol Fumarate [Symbicort 80-4.5 Mcg Inhaler] 2 puff INHALATION AC-BID #1 inhaler Continue Sertraline [Zoloft] 150 mg PO DAILY Omeprazole [PriLOSEC] 20 mg PO BID Metoprolol Succinate [Toprol XL] 37.5 mg PO DAILY Magnesium Hydroxide [Milk of Magnesia Concentrate] 7,200 mg PO DAILY PRN PRN Reason: Constipation Lovastatin [Mevacor] 40 mg PO DAILY Lisinopril [Zestril] 10 mg PO DAILY Levothyroxine Sodium [Synthroid] 137 mcg PO DAILY levETIRAcetam [Keppra] 1,000 mg PO BID Isosorbide Mononitrate ER [Imdur] 30 mg PO BID Insulin Lispro [humaLOG Kwikpen] See Protocol SQ AC-TID Phenytoin Sodium Extended [Dilantin] 300 mg PO BID Bisacodyl 10 mg RECTAL DAILY PRN PRN Reason: Constipation Insulin Glargine,Hum.rec.anlog [Basaglar Kwikpen U-100] 15 unit SQ HS Aspirin [[place] Aspirin EC] 81 mg PO DAILY Albuterol Nebulized [Ventolin Nebulized] 2.5 mg INHALATION RT-Q4H Changed HYDROcodone/APAP 10-325MG [[place] 10-325] 1 tab PO Q6H PRN #12 tab PRN Reason: Pain Discontinued ALPRAZolam [Xanax] 2 mg PO HS Furosemide [Lasix] 40 mg PO BID Ferrous Sulfate [Iron (65 MG Elemental)] 325 mg PO DAILY Clopidogrel Bisulfate [Plavix] 75 mg PO DAILY Ramipril [Altace] 5 mg PO DAILY Discharge Medication List Albuterol Nebulized [Ventolin Nebulized] 2.5 mg INHALATION RT-Q4H 09/23/18 [History] Aspirin [[place] Aspirin EC] 81 mg PO DAILY 09/23/18 [History] Bisacodyl 10 mg RECTAL DAILY PRN 09/23/18 [History] Insulin Glargine,Hum.rec.anlog [Basaglar Kwikpen U-100] 15 unit SQ HS 09/23/18 [History] Insulin Lispro [humaLOG Kwikpen] See Protocol SQ AC-TID 09/23/18 [History] Isosorbide Mononitrate ER [Imdur] 30 mg PO BID 09/23/18 [History] Levothyroxine Sodium [Synthroid] 137 mcg PO DAILY 09/23/18 [History] Lisinopril [Zestril] 10 mg PO DAILY 09/23/18 [History] Lovastatin [Mevacor] 40 mg PO DAILY 09/23/18 [History] Magnesium Hydroxide [Milk of Magnesia Concentrate] 7,200 mg PO DAILY PRN 09/23/18 [History] Metoprolol Succinate [Toprol XL] 37.5 mg PO DAILY 09/23/18 [History] Omeprazole [PriLOSEC] 20 mg PO BID 09/23/18 [History] Phenytoin Sodium Extended [Dilantin] 300 mg PO BID 09/23/18 [History] Sertraline [Zoloft] 150 mg PO DAILY 09/23/18 [History] levETIRAcetam [Keppra] 1,000 mg PO BID 09/23/18 [History] Budesonide/Formoterol Fumarate [Symbicort 80-4.5 Mcg Inhaler] 2 puff INHALATION AC-BID #1 inhaler 09/28/18 [Rx] Ferrous Sulfate [Iron (65 MG Elemental)] 325 mg PO BID-W/MEALS tab 09/28/18 [Rx] Furosemide [Lasix] 40 mg PO TID tab 09/28/18 [Rx] HYDROcodone/APAP 10-325MG [[place] 10-325] 1 tab PO Q6H PRN #12 tab 09/28/18 [Rx] hydrALAZINE HCL [Apresoline] 25 mg PO BID tab 09/28/18 [Rx] Follow up Appointment(s)/Referral(s): None,Stated [Primary Care Provider] - 1-2 days Patient Instructions/Handouts: Heart Failure (DC), Type 2 Diabetes in Adults: New Diagnosis (DC) Activity/Diet/Wound Care/Special Instructions: [facility] Diet: Low sodium 2 G, carb consistent Activity: as tolerated Recommend: Repeat CBC and BMP in 3-4 days, then in 2 weeks Ferritin, iron level, TIBC, and Iron saturation (unable to do here as had already received blood on arrival and would not be accurate). 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 Discharge Disposition: TRANSFER TO SNF/F
[2018-09-29 14:51] VITALS: PULSE 78
== END 2018-09-29 14:43 | DRG 280 ==
LOC: EC 21:19 → 3SCARD 22:27 → 4MS4W 09-28 19:51
PROVIDERS: ADMIT Internal Medicine; ATTEND Internal Medicine
PROC: 5A09357 Assistance with Respiratory Ventilation, Less than 24 Consecutive Hours, Continuous Positive Airway Pressure (ICD-10-PCS; principal; 2018-09-23)
DX: I11.0 Hypertensive heart disease with heart failure (principal); J96.01 Acute respiratory failure with hypoxia; I21.A1 Myocardial infarction type 2; D62 Acute posthemorrhagic anemia; G40.919 Epilepsy, unspecified, intractable, without status epilepticus; K92.1 Melena; I50.23 Acute on chronic systolic (congestive) heart failure; I25.10 Atherosclerotic heart disease of native coronary artery without angina pectoris; I25.2 Old myocardial infarction; J44.9 Chronic obstructive pulmonary disease, unspecified; K59.09 Other constipation; S72.002D Fracture of unspecified part of neck of left femur, subsequent encounter for closed fracture with routine healing; E78.5 Hyperlipidemia, unspecified; E11.65 Type 2 diabetes mellitus with hyperglycemia; D53.9 Nutritional anemia, unspecified; D63.8 Anemia in other chronic diseases classified elsewhere; E03.9 Hypothyroidism, unspecified; Z79.02 Long term (current) use of antithrombotics/antiplatelets; Z79.4 Long term (current) use of insulin; Z79.82 Long term (current) use of aspirin; Z79.890 Hormone replacement therapy; Z79.899 Other long term (current) drug therapy; Z83.3 Family history of diabetes mellitus; Z87.891 Personal history of nicotine dependence; Z88.0 Allergy status to penicillin; Z88.8 Allergy status to other drugs, medicaments and biological substances
CPT/HCPCS: 36415; 71045; 80048; 80053; 80185; 80186; 82140; 82272; 83605; 83735; 83880; 84484; 85025; 85027; 85610; 85730; 86850; 86900; 86901; 93306; 94640; 94660; 94760; 96374; 96375; 99291